=== PATIENT | female | born 1965 | race Caucasian/White ===

== ENCOUNTER 2016-11-26 11:00 | Outpatient (CLI) | payer OTHER ==
--- NOTE | 2016-11-28 16:35 | PE ---
EXAMINATION TYPE: PET CT fusion skull to thigh DATE OF EXAM: 11/26/2016 1:21 PM CLINICAL HISTORY: 51-year-old female solitary pulmonary nodule, initial staging TECHNIQUE: Following the intravenous administration of 11.92 mCi of F-18 FDG, whole body images are performed from the skull base to the midthigh. Images are reviewed on the computer in the coronal, axial, and sagittal planes. Reconstructed rotating images are created on independent workstation and reviewed on the computer. A localization and attenuation correction CT is performed in conjunction with the PET scan. Glucose level: 97 mg/dL COMPARISON: CT chest 02/04/2016 FINDINGS: PET: Redemonstrated goitrous enlargement of the left lobe of the thyroid gland which could be further eval uated with thyroid ultrasound. No discrete FDG uptake here. There is physiologic FDG uptake within th e neck. Redemonstrated 1 cm subpleural pulmonary nodule in the lateral segment right middle lobe, unchanged f rom 02/04/2016. There is no appreciable FDG uptake in this region. Also redemonstrated is the elongated lobulated nodule at the right hilar region measuring up to 1.4 c m long, again without appreciable FDG uptake in this region. Otherwise, physiologic FDG uptake within the chest, abdomen, and pelvis. ATTENUATION CORRECTION CT: Visualized paranasal sinuses and mastoid air cells are clear. No cervical lymphadenopathy seen. Heart is upper limits of normal in size without pericardial effusion. Ascending aorta is ectatic at 3 .9 cm. There is conventional arch vessel branching anatomy. No thoracic lymphadenopathy identified. Bullous change in the right infrahilar region. Mild diffuse bronchial wall thickening suggests bronc hitis or chronic asthma. No consolidation or pleural effusion. Small hiatal hernia. No dilated small bowel, free fluid, or free air. Cholecystectomy clips are pres ent. No mesenteric or retroperitoneal lymphadenopathy. Mild to moderate stool burden without pericolo madeline inflammatory change. Bladder is nondistended. Uterus appears surgically absent. Neither ovary well seen. No abnormal fluid collection in the pelvis. Bones: Degenerative changes at the hips. A sclerotic focus within the left sacrum shows no discrete FDG uptake suggesting a benign etiology. Some facet arthropathy in the lower lumbar spine. Endplate s pondylosis mid to lower thoracic spine. No osseous destructive process. IMPRESSION: 1. The 1 cm right middle lobe pulmonary nodule in question shows no discrete hypermetabolism and is s table from 02/04/2016. This favors a benign etiology. Additional one-year CT follow-up can ensure 2 ye ars of stability. 2. The 1.4 cm right hilar pulmonary nodule also shows no discrete hypermetabolism and is also unchang ed. This can also be reassessed at the one-year CT follow-up. 3. Goitrous enlargement of the left lobe of the thyroid gland.
== END 2016-11-26 13:00 | disposition home or self-care (01) ==
LOC: RADPETMAIN 11:00
PROVIDERS: ATTEND Nurse Practitioner
DX: R91.1 Solitary pulmonary nodule (principal)
CPT/HCPCS: 78815; A9552

== ENCOUNTER 2017-03-27 18:55 | Emergency (ER) | payer OTHER ==
[2017-03-27 19:04] VITALS: TEMP 98
--- NOTE | 2017-03-27 19:37 | ED ---
General Adult HPI - General Chief complaint: Neuro Symptoms/Deficit Stated complaint: LEFT SIDE WEAKNESS/NUMBNESS, DIZZINESS Time Seen by Provider: 03/27/17 19:10 Source: patient, family Mode of arrival: wheelchair Limitations: no limitations - History of Present Illness Initial comments: This 51-year-old female presents with the complaint of some left sided numbness. She states that this is present to her bilateral face, left leg, and left arm. Symptom onset was this morning. She states that she feels shaky and has some generalized weakness. She denies any headache or head injury. She apparently had one previous similar incident years ago. He states that she was told that she might have had a TIA at that time. she denies any chest pain or shortness of breath. She further denies any fevers or recent infections. She denies any unilateral weakness. she also complains of some left calf pain and cramping sensation. She denies any history of DVT or PE. No other complaints or modifying factors. - Related Data Home Medications Medication Instructions Recorded Confirmed Lisinopril-Hctz 20-25 mg 1 tab PO DAILY 11/13/15 03/27/17 [Zestoretic 20-25] Previous Rx's Medication Instructions Recorded Nitroglycerin Sl Tabs [Nitrostat] 0.4 mg SUBLINGUAL Q5M PRN #50 tab 02/05/16 Allergies Allergy/AdvReac Type Severity Reaction Status Date / Time No Known Allergies Allergy Verified 03/27/17 20:49 Review of Systems ROS Statement: Those systems with pertinent positive or pertinent negative responses have been documented in the HPI. ROS Other: All systems not noted in ROS Statement are negative. Past Medical History Past Medical History: Hypertension, Thyroid Disorder Additional Past Medical History / Comment(s): Hyperthyroid History of Any Multi-Drug Resistant Organisms: None Reported Past Surgical History: Section, Cholecystectomy, Hysterectomy Additional Past Surgical History / Comment(s): colonoscopy-normal Past Anesthesia/Blood Transfusion Reactions: No Reported Reaction Past Psychological History: No Psychological Hx Reported Additional Psychological History / Comment(s): Pt resides with her adult neal. She is independent. She drives. Smoking Status: Current every day smoker Past Alcohol Use History: Rare Additional Past Alcohol Use History / Comment(s): Pt states she started smoking at age 16 yrs and is a 1ppd smoker. Past Drug Use History: None Reported - Past Family History Father Family Medical History: Myocardial Infarction ([place]) Additional Family Medical History / Comment(s): Father had a massive [place] at age 59 yrs Mother Family Medical History: Coronary Artery Disease (CAD), Myocardial Infarction ([place] ) Additional Family Medical History / Comment(s): Pt believes mother had a [place]. She has had a cardiac stent. She is 71 yrs old. General Exam - General Exam Comments Initial Comments: GENERAL: The patient is well nourished and well hydrated. VITAL SIGNS: Heart rate, blood pressure, respiratory rate reviewed as recorded in nurse's notes. EYES: Pupils are round and reactive. Extraocular movements are intact. No conjunctival / lid redness or swelling. ENT: No external evidence of injury, swelling, or ecchymosis. Airway is patent. Throat is clear. NECK: Nontender. No swelling or evidence of injury. No subcutaneous emphysema. Trachea is midline. No thyroid mass. HEART: Regular rate and rhythm. Good peripheral pulses. LUNGS/CHEST: Breath sounds clear and equal bilaterally. No rales, rhonchi, or wheezes. No ecchymosis, subcutaneous emphysema, or tenderness. ABDOMEN: Abdomen soft without tenderness. No palpable masses or organomegaly. No peritoneal signs. No abdominal wall swelling or ecchymosis. EXTREMITIES: there is mild tenderness present to the left calf without any swelling.Normal muscle tone and function. No thoracolumbar tenderness. NEUROLOGIC: Sensation is grossly intact. Cranial nerve exam reveals face is symmetrical, tongue is midline, speech is clear. there is no weakness to extremities. SKIN: No abrasions or ecchymosis is noted. No induration or masses noted. PSYCHIATRIC: Alert and oriented. Appropriate behavior and judgment. Limitations: no limitations Course Vital Signs 03/27/17 03/27/17 03/27/17 19:01 19:30 20:30 Temperature 98 F Pulse Rate 99 94 94 Respiratory 16 18 18 Rate Blood Pressure 159/95 150/82 139/76 O2 Sat by Pulse 99 96 96 Oximetry Medical Decision Making - Medical Decision Making the patient was seen and examined. All diagnostics were reviewed. EKG shows a normal sinus rhythm at a rate of 97. No acute ST-T wave changes are identified. There is minimal voltage criteria for left ventricular hypertrophy. The NE interval is 158, QRS duration is 86, and the QTc interval is 449.The computed tomography scan of the brain did not show any acute processes. the lower extremity venous Doppler of the left leg does not show any evidence of DVT. The laboratory is all essentially within normal limits except for the TSH was fairly low. She does relate that she's previously been diagnosed with hyperthyroidism. She was seen and spa supervisor but had been doing fairly well in stopped her medications approximately 3 months ago under the direction of her spa supervisor. She apparently was on Tapazole at that time. She denies any previous paresthesias with hyperthyroidism. It is felt as though she is stable for discharge but should have some close follow-up with her spa supervisor to see if she should be back on this medication. It is felt as though the paresthesias potentially could be related to the thyroid. Otherwise, the exact cause is not definitively determined. Return parameters are discussed and she lives in no distress. She is feeling improved on recheck. - Lab Data Result diagrams: 03/27/17 19:45 03/27/17 19:45 Lab Results 03/27/17 03/27/17 03/27/17 Range/Units 19:45 19:45 19:45 WBC 6.6 (3.8-10.6) k/uL RBC 4.46 (3.80-5.40) m/uL Hgb 13.0 (11.4-16.0) gm/dL Hct 38.7 (34.0-46.0) % MCV 86.8 (80.0-100.0) fL MCH 29.1 (25.0-35.0) pg MCHC 33.5 (31.0-37.0) g/dL RDW 13.1 (11.5-15.5) % Plt Count 219 (150-450) k/uL Neutrophils % 61 % Lymphocytes % 30 % Monocytes % 4 % Eosinophils % 3 % Basophils % 0 % Neutrophils # 4.0 (1.3-7.7) k/uL Lymphocytes # 2.0 (1.0-4.8) k/uL Monocytes # 0.3 (0-1.0) k/uL Eosinophils # 0.2 (0-0.7) k/uL Basophils # 0.0 (0-0.2) k/uL PT 10.1 (9.0-12.0) sec INR 1.0 (<1.1) APTT 22.9 (22.0-30.0) sec Sodium 141 (137-145) mmol/L Potassium 3.8 (3.5-5.1) mmol/L Chloride 107 (98-107) mmol/L Carbon Dioxide 27 (22-30) mmol/L Anion Gap 7 mmol/L BUN 17 (7-17) mg/dL Creatinine 0.93 (0.52-1.04) mg/dL Est GFR (MDRD) Af Amer >60 (>60 ml/min/1.73 sqM) Est GFR (MDRD) Non-Af >60 (>60 ml/min/1.73 sqM) Glucose 111 H (74-99) mg/dL Calcium 9.5 (8.4-10.2) mg/dL Phosphorus 2.8 (2.5-4.5) mg/dL Magnesium 1.9 (1.6-2.3) mg/dL Total Bilirubin 0.5 (0.2-1.3) mg/dL AST 18 (14-36) U/L ALT 38 (9-52) U/L Alkaline Phosphatase 76 (38-126) U/L Total Protein 6.5 (6.3-8.2) g/dL Albumin 4.0 (3.5-5.0) g/dL TSH <0.015 L (0.465-4.680) mIU/L Free T4 2.41 H (0.78-2.19) ng/dL Disposition Clinical Impression: Paresthesia, Hyperthyroidism Disposition: HOME SELF-CARE Condition: Good Instructions: Paresthesia (ED), Hyperthyroidism (ED) Additional Instructions: please follow-up with your spa supervisor as soon as possible. Referrals: Ronald Mejia MD [Primary Care Provider] - 1-2 days Time of Disposition: 21:39
[2017-03-27] MEDS ORDERED: KETOROLAC 30 MG/ML 1 ML VIAL IVP STA (19:44)
[2017-03-27 20:11] LABS: Basophils % (A) 0 %; CH 28.8; CHCM 33.3; Eosinophils # (A) 0.2 k/uL (0-0.7); Eosinophils % (A) 3 %; HCT 38.7 % (34.0-46.0); HDW 2.65; Luc # (Auto) 0.12; Luc % (Auto) 2; Lymphocytes % (A) 30 %; MCH 29.1 pg (25.0-35.0); MCHC 33.5 g/dL (31.0-37.0); MCV 86.8 fL (80.0-100.0); Mean Platelet Volume 8.1; Monocytes # (A) 0.3 k/uL (0-1.0); Monocytes % (A) 4 %; Neutrophils % (A) 61 %; RBC 4.46 m/uL (3.80-5.40); RDW 13.1 % (11.5-15.5); WBC 6.6 k/uL (3.8-10.6); WBC (Perox) 6.94
--- NOTE | 2017-03-27 20:14 | CT ---
EXAMINATION TYPE: CT brain wo con DATE OF EXAM: 03/27/2017 COMPARISON: 07/13/2015 HISTORY: facial and extremity numbness CT DLP: 1054.2 mGycm Automated exposure control for dose reduction was used. FINDINGS: Ventricles and sulci appear normal. There is no mass effect nor midline shift. There is no sign of in tracranial hemorrhage. The calvarium is intact. IMPRESSION: Negative unenhanced head CT scan. No change.
[2017-03-27 20:24] LABS: Partial Thromboplastin Time 22.9 sec (22.0-30.0); Prothrombin Time 10.1 sec (9.0-12.0)
[2017-03-27 20:30] LABS: ALT 38 U/L (9-52); AST 18 U/L (14-36); Alkaline Phosphatase 76 U/L (38-126); Anion Gap 7 mmol/L; Blood Urea Nitrogen 17 mg/dL (7-17); Calcium 9.5 mg/dL (8.4-10.2); Carbon Dioxide 27 mmol/L (22-30); Chloride 107 mmol/L (98-107); Glucose 111 mg/dL (74-99); Magnesium 1.9 mg/dL (1.6-2.3); Non-African American GFR(MDRD) >60 (>60 ml/min/1.73 sqM); Phosphorous 2.8 mg/dL (2.5-4.5); Potassium 3.8 mmol/L (3.5-5.1); Sodium 141 mmol/L (137-145); Total Bilirubin 0.5 mg/dL (0.2-1.3); Total Protein 6.5 g/dL (6.3-8.2)
--- NOTE | 2017-03-27 21:01 | US ---
EXAMINATION TYPE: US venous doppler duplex LE LT DATE OF EXAM: 03/27/2017 8:43 PM COMPARISON: Prior in PACS CLINICAL HISTORY: Pain left leg. SIDE PERFORMED: Left TECHNIQUE: The lower extremity deep venous system is examined utilizing real time linear array sonog leonard with graded compression, doppler sonography and color-flow sonography. VESSELS IMAGED: External Iliac Vein (EIV) Common Femoral Vein Deep Femoral Vein Greater Saphenous Vein * Femoral Vein Popliteal Vein Small Saphenous Vein * Proximal Calf Veins (* superficial vessels) Left Leg: Negative for DVT IMPRESSION: Normal exam. No evidence of deep venous thrombosis in the left leg.
[2017-03-27 21:03] VITALS: RESP 18
[2017-03-27 21:49] VITALS: BP 139/87; PULSE 76
== END 2017-03-27 21:49 | disposition home or self-care (01) ==
LOC: EC 18:55
DX: E05.90 Thyrotoxicosis, unspecified without thyrotoxic crisis or storm (principal); R20.0 Anesthesia of skin; I51.7 Cardiomegaly; R53.1 Weakness; I10 Essential (primary) hypertension; F17.200 Nicotine dependence, unspecified, uncomplicated; Z79.899 Other long term (current) drug therapy
CPT/HCPCS: 36415; 70450; 80053; 83735; 84100; 84439; 84443; 85025; 85610; 85730; 93005; 99284

== ENCOUNTER → 2017-07-11 | Outpatient (CLI) | payer OTHER ==
--- NOTE | 2017-07-11 15:18 | WWHP ---
[facility] - HISTORY AND PHYSICAL DATE OF SERVICE: 07/11/2017 CHIEF COMPLAINT: The patient is here for her routine gynecologic exam and mammogram. HPI: This is a 51-year-old, G3, P3 with an LMP of 2000, who is status post SORAIDA for benign reasons. The patient is without gynecologic complaints. She has had occasional hot flashes, but they are infrequent. PAST MEDICAL HISTORY: Chronic hypertension and hyperthyroidism. MEDICATIONS: 1. Zestoretic 25 mg daily. 2. Tapazole 10 mg daily. 3. Aspirin 325 mg daily. ALLERGIES: No known drug allergies. 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 SOCIAL HISTORY: She smokes a half a pack of cigarettes per day and this is down from last year. She has about 3 alcoholic drinks per month and denies drug use. She has been with her boyfriend since 2014 and lives with him. 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 REVIEW OF SYSTEMS: She has gained about 26 pounds over the last year. She denies respiratory, cardiac, or GI problems. PHYSICAL EXAM: Blood pressure 141/90, height 5 feet 6 inches, weight 245 pounds, temperature 97.9, pulse 70. This is a well-developed, heavyset white female, who is alert and oriented x3, in no acute distress. HEENT is within normal limits. NECK: Supple and there is generalized thyromegaly. The thyroid gland is approximately 2 times normal size and is nontender. There are no focal thyroid nodules. CHEST AND. LUNGS: Clear to auscultation. HEART: Regular rate and rhythm. Breasts are without mass or discharge. Axillary exam is negative for adenopathy. Back negative for CVA tenderness. ABDOMEN: Mildly obese, soft, nontender, without palpable masses. PELVIC EXAM: Normal external genitalia. Vagina appears normal without significant atrophy. There is no evidence of prolapse. Bimanual exam is negative for mass or tenderness. Rectovaginal exam is negative for mass or tenderness and is negative for occult blood. EXTREMITIES: Nontender. IMPRESSION: 1. A 51-year-old female status post total abdominal hysterectomy with normal gynecologic exam. 2. Mildly elevated blood pressure. PLAN: 1. Pap smears have been discontinued. 2. Self breast examination was discussed. 3. Mammogram will be done today. 4. I have recommended screening colonoscopy and Dr. Menard's card was given to the patient for this. 5. I recommended that she quit smoking. She states she is in the process of quitting. 6. Osteoporosis prevention was discussed. 7. She states she is planning on having radioactive iodine treatment for her hyperthyroidism at the [facility]. She will follow up with her luster applicator for that. 8. She will return in 1 year. MMCHEIKHL / SAHILN: [id number] /
--- NOTE | 2017-07-12 08:41 | MM ---
Reason for exam: screening (asymptomatic). Last mammogram was performed 1 year and 1 month ago. History: Patient is postmenopausal. Benign US LT VAD breast biopsy of the left breast, October 11, 2013. Benign excisional biopsy of the left breast, 1997. Physical Findings: A clinical breast exam by your physician is recommended on an annual basis and results should be correlated with mammographic findings. MG Screening Mammo w CAD Bilateral CC and MLO view(s) were taken. Prior study comparison: June 15, 2016, bilateral MG screening mammo w CAD. June 11, 2015, bilateral MG screening mammo w CAD. There are scattered fibroglandular densities. Finding: There are typically benign round calcifications in both breasts. Previous mammotome biopsy in the left breast. Asymmetric breast tissue in the left breast upper outer quadrant. There is no discrete abnormality. ASSESSMENT: Benign, BI-RAD 2 RECOMMENDATION: Routine screening mammogram of both breasts in 1 year.
== END | disposition home or self-care (01) ==
LOC: WWCWWP 13:12
PROVIDERS: ATTEND Obstetrics & Gynecology
DX: Z12.31 Encounter for screening mammogram for malignant neoplasm of breast (principal)

== ENCOUNTER 2019-05-15 22:47 | Emergency (ER) | payer OTHER ==
[2019-05-15 22:56] VITALS: TEMP 97.7
--- NOTE | 2019-05-15 23:07 | ED ---
Abdominal Pain HPI - General Chief Complaint: Abdominal Pain Stated Complaint: Lt side pain Time Seen by Provider: 05/15/19 23:06 Source: patient Mode of arrival: ambulatory - History of Present Illness Initial Comments: Patient is a 53-year-old female who presents to the emergency department today for evaluation of 3 days of left lower quadrant abdominal pain. She reports that she's been experiencing left-sided lower abdominal pain for approximately 3 days, pain is described as dull aching, constant, worse with walking. Patient denies any nausea, vomiting, change in appetite, diarrhea, constipation or change in bowel or bladder habits. She denies any dysuria or hematuria though she noted when she provided urine sample her urine appeared very dark. Patient denies any fevers or chills. She reports her last colonoscopy was about 3 months ago and she was told it was normal. She has no history of inflammatory or irritable bowel, no history of diverticulitis or known history of diverticulosis. - Related Data Home Medications Medication Instructions Recorded Confirmed Lisinopril-Hctz 20-25 mg 1 tab PO HS 11/13/15 05/15/19 [Zestoretic 20-25] Methimazole [Tapazole] 20 mg PO HS 05/15/19 05/15/19 Previous Rx's Medication Instructions Recorded Nitroglycerin Sl Tabs [Nitrostat] 0.4 mg SUBLINGUAL Q5M PRN #50 tab 02/05/16 Allergies Allergy/AdvReac Type Severity Reaction Status Date / Time No Known Allergies Allergy Verified 05/15/19 23:08 Review of Systems ROS Statement: Those systems with pertinent positive or pertinent negative responses have been documented in the HPI. ROS Other: All systems not noted in ROS Statement are negative. Past Medical History Past Medical History: Hypertension, Thyroid Disorder Additional Past Medical History / Comment(s): Hyperthyroid History of Any Multi-Drug Resistant Organisms: None Reported Past Surgical History: Section, Cholecystectomy, Hysterectomy Additional Past Surgical History / Comment(s): colonoscopy-normal Past Anesthesia/Blood Transfusion Reactions: No Reported Reaction Past Psychological History: No Psychological Hx Reported Smoking Status: Current every day smoker Past Alcohol Use History: Rare Past Drug Use History: None Reported - Past Family History Father Family Medical History: Myocardial Infarction ([place]) Additional Family Medical History / Comment(s): Father had a massive [place] at age 59 yrs Mother Family Medical History: Coronary Artery Disease (CAD), Myocardial Infarction ([place]) Additional Family Medical History / Comment(s): Pt believes mother had a [place]. She has had a cardiac stent. She is 71 yrs old. General Exam - General Exam Comments Initial Comments: Physical Exam GENERAL: Patient is well-developed and well-nourished. Patient is nontoxic and well-hydrated and is in no distress. HENT: Normocephalic, Atraumatic. EYES: PERRL, EOMI PULMONARY: Unlabored respirations. No audible rales rhonchi or wheezing was noted. CARDIOVASCULAR: There is a regular rate and rhythm without any murmurs gallops or rubs. ABDOMEN: Soft and nontender with normal bowel sounds. Mild tenderness to deep palpation in the left lower quadrant No palpable hernias though exam is limited by morbid obesity SKIN: Patient noted to have a rash under her pannus in the suprapubic area consistent with candidiasis she reports this is chronic she's been treated for it : Deferred NEUROLOGIC: Patient is alert and oriented x3. Moving all extremities spontaneously MUSCULOSKELETAL: Normal extremities with adequate strength and full range of motion. No lower extremity swelling or edema. No calf tenderness. PSYCHIATRIC: Normal psychiatric evaluation Course Vital Signs 05/15/19 22:53 Temperature 97.7 F Pulse Rate 106 H Respiratory 17 Rate Blood Pressure 164/103 O2 Sat by Pulse 96 Oximetry Medical Decision Making - Medical Decision Making The patient was seen and evaluated, history is obtained from the patient and review of medical record History and physical exam are concerning for left sided abdominal pain There is concern for possible underlying abdominal wall hernia given of the exam is somewhat limited by the patient's body habitus Labs and CT were ordered Labs are unremarkable Urinalysis with gross contamination Computed tomography scan reveals epiploic appendage ideas with no signs of acute intra-abdominal pathology Results were discussed with the patient who is resting comfortably she's received IV fluid she is comfortable with plan for discharge home, supportive care, pain management with Tylenol and Motrin. All questions pertaining to care were answered return parameters were discussed patient was discharged home in stable condition. - Lab Data Result diagrams: 05/16/19 00:20 05/16/19 00:20 Lab Results 05/16/19 05/16/19 05/16/19 Range/Units 00:20 00:20 00:20 WBC 7.5 (3.8-10.6) k/uL RBC 4.82 (3.80-5.40) m/uL Hgb 14.1 (11.4-16.0) gm/dL Hct 42.5 (34.0-46.0) % MCV 88.1 (80.0-100.0) fL MCH 29.3 (25.0-35.0) pg MCHC 33.2 (31.0-37.0) g/dL RDW 14.8 (11.5-15.5) % Plt Count 197 (150-450) k/uL Neutrophils % 57 % Lymphocytes % 32 % Monocytes % 6 % Eosinophils % 3 % Basophils % 1 % Neutrophils # 4.3 (1.3-7.7) k/uL Lymphocytes # 2.4 (1.0-4.8) k/uL Monocytes # 0.5 (0-1.0) k/uL Eosinophils # 0.2 (0-0.7) k/uL Basophils # 0.1 (0-0.2) k/uL Sodium 140 (137-145) mmol/L Potassium 4.2 (3.5-5.1) mmol/L Chloride 107 (98-107) mmol/L Carbon Dioxide 22 (22-30) mmol/L Anion Gap 11 mmol/L BUN 19 H (7-17) mg/dL Creatinine 0.84 (0.52-1.04) mg/dL Est GFR (CKD-EPI)AfAm >90 (>60 ml/min/1.73 sqM) Est GFR (CKD-EPI)NonAf 80 (>60 ml/min/1.73 sqM) Glucose 115 H (74-99) mg/dL Plasma Lactic Acid Jose (0.7-2.0) mmol/L Calcium 10.1 (8.4-10.2) mg/dL Total Bilirubin 0.4 (0.2-1.3) mg/dL AST 14 (14-36) U/L ALT 22 (9-52) U/L Alkaline Phosphatase 94 (38-126) U/L Total Protein 6.8 (6.3-8.2) g/dL Albumin 4.2 (3.5-5.0) g/dL Amylase 42 (30-110) U/L Lipase 54 (23-300) U/L Urine Color Urine Appearance (Clear) Urine pH (5.0-8.0) Ur Specific [place] (1.001-1.035) Urine Protein (Negative) Urine Glucose (UA) (Negative) Urine Ketones (Negative) Urine Blood (Negative) Urine Nitrite (Negative) Urine Bilirubin (Negative) Urine Urobilinogen (<2.0) mg/dL Ur Leukocyte Esterase (Negative) Urine RBC (0-5) /hpf Urine WBC (0-5) /hpf Ur Squamous Epith Cells (0-4) /hpf Urine Bacteria (None) /hpf Urine Mucus (None) /hpf Urine HCG, Qual Not Detected (Not Detectd) 05/16/19 05/16/19 Range/Units 00:20 00:20 WBC (3.8-10.6) k/uL RBC (3.80-5.40) m/uL Hgb (11.4-16.0) gm/dL Hct (34.0-46.0) % MCV (80.0-100.0) fL MCH (25.0-35.0) pg MCHC (31.0-37.0) g/dL RDW (11.5-15.5) % Plt Count (150-450) k/uL Neutrophils % % Lymphocytes % % Monocytes % % Eosinophils % % Basophils % % Neutrophils # (1.3-7.7) k/uL Lymphocytes # (1.0-4.8) k/uL Monocytes # (0-1.0) k/uL Eosinophils # (0-0.7) k/uL Basophils # (0-0.2) k/uL Sodium (137-145) mmol/L Potassium (3.5-5.1) mmol/L Chloride (98-107) mmol/L Carbon Dioxide (22-30) mmol/L Anion Gap mmol/L BUN (7-17) mg/dL Creatinine (0.52-1.04) mg/dL Est GFR (CKD-EPI)AfAm (>60 ml/min/1.73 sqM) Est GFR (CKD-EPI)NonAf (>60 ml/min/1.73 sqM) Glucose (74-99) mg/dL Plasma Lactic Acid Jose 0.6 L (0.7-2.0) mmol/L Calcium (8.4-10.2) mg/dL Total Bilirubin (0.2-1.3) mg/dL AST (14-36) U/L ALT (9-52) U/L Alkaline Phosphatase (38-126) U/L Total Protein (6.3-8.2) g/dL Albumin (3.5-5.0) g/dL Amylase (30-110) U/L Lipase (23-300) U/L Urine Color Yellow Urine Appearance Cloudy H (Clear) Urine pH 5.5 (5.0-8.0) Ur Specific [place] 1.027 (1.001-1.035) Urine Protein Negative (Negative) Urine Glucose (UA) Negative (Negative) Urine Ketones Negative (Negative) Urine Blood Moderate H (Negative) Urine Nitrite Positive H (Negative) Urine Bilirubin Negative (Negative) Urine Urobilinogen <2.0 (<2.0) mg/dL Ur Leukocyte Esterase Negative (Negative) Urine RBC 5 (0-5) /hpf Urine WBC 2 (0-5) /hpf Ur Squamous Epith Cells 2 (0-4) /hpf Urine Bacteria Many H (None) /hpf Urine Mucus Few H (None) /hpf Urine HCG, Qual (Not Detectd) Disposition Clinical Impression: Abdominal pain Disposition: HOME SELF-CARE Condition: Stable Instructions (If sedation given, give patient instructions): Abdominal Pain (ED) Is patient prescribed a controlled substance at d/c from ED?: No Referrals: Ronald Mejia MD [Primary Care Provider] - 1-2 days
[2019-05-16] MEDS ORDERED: SODIUM CHLORIDE 0.9% 1,000 ML IV STA (00:02)
[2019-05-16 00:42] LABS: Appearance,Urine Cloudy (Clear); Bacteria,Urine Many /hpf; Basophils # (A) 0.1 k/uL (0-0.2); Basophils % (A) 1 %; Bilirubin,Urine Negative (Negative); Blood,Urine Moderate (Negative); Color,Urine Yellow; Eosinophils # (A) 0.2 k/uL (0-0.7); Eosinophils % (A) 3 %; Glucose,Urine (UA) Negative (Negative); HCT 42.5 % (34.0-46.0); HGB 14.1 gm/dL (11.4-16.0); Ketones,Urine Negative (Negative); Leukocyte Esterase,Urine Negative (Negative); Lymphocytes # (A) 2.4 k/uL (1.0-4.8); Lymphocytes % (A) 32 %; MCH 29.3 pg (25.0-35.0); MCHC 33.2 g/dL (31.0-37.0); MCV 88.1 fL (80.0-100.0); Mean Platelet Volume 8.5; Monocytes # (A) 0.5 k/uL (0-1.0); Monocytes % (A) 6 %; Mucus,Urine Few /hpf; Neutrophils # (A) 4.3 k/uL (1.3-7.7); Neutrophils % (A) 57 %; Nitrite,Urine Positive (Negative); PH, Urine 5.5 (5.0-8.0); Platelet Count 197 k/uL (150-450); Protein,Urine Negative (Negative); RBC 4.82 m/uL (3.80-5.40); RBC,Urine 5 /hpf (0-5); RDW 14.8 % (11.5-15.5); Specific Gravity,Urine 1.027 (1.001-1.035); Squamous Epithelial Cell,Urine 2 /hpf (0-4); Urobilinogen,Urine <2.0 mg/dL (<2.0); WBC 7.5 k/uL (3.8-10.6); WBC,Urine 2 /hpf (0-5)
[2019-05-16 00:51] LABS: ALT 22 U/L (9-52); AST 14 U/L (14-36); African American GFR (CKD) >90 (>60 ml/min/1.73 sqM); Albumin 4.2 g/dL (3.5-5.0); Alkaline Phosphatase 94 U/L (38-126); Amylase 42 U/L (30-110); Anion Gap 11 mmol/L; Blood Urea Nitrogen 19 mg/dL (7-17); Calcium 10.1 mg/dL (8.4-10.2); Carbon Dioxide 22 mmol/L (22-30); Chloride 107 mmol/L (98-107); Glucose 115 mg/dL (74-99); Potassium 4.2 mmol/L (3.5-5.1); Sodium 140 mmol/L (137-145); Total Bilirubin 0.4 mg/dL (0.2-1.3); Total Protein 6.8 g/dL (6.3-8.2)
--- NOTE | 2019-05-16 02:16 | CT ---
EXAM: CT Abdomen and Pelvis With Intravenous Contrast CLINICAL HISTORY: Pain TECHNIQUE: Axial computed tomography images of the abdomen and pelvis with intravenous contrast. CTDI is 0.242, 0.242, 21.6, 17.6 mGy and DLP is 1945.7 mGy-cm. This CT exam was performed using one or more of the following dose reduction techniques: automated exposure control, adjustment of the mA and/or kV according to patient size, and/or use of iterative reconstruction technique. COMPARISON: No relevant prior studies available. FINDINGS: Lung bases: Calcified pulmonary nodule within the right middle lobe. Bullae the medial right middle lobe measuring up to 5.6 cm. ABDOMEN: Liver: Unremarkable. Gallbladder and bile ducts: Gallbladder is surgically absent. Pancreas: Unremarkable. Spleen: Calcified granulomata within the spleen. Adrenals: Unremarkable. Kidneys and ureters: Unremarkable. Stomach and bowel: Unremarkable. PELVIS: Appendix: No findings to suggest acute appendicitis. Bladder: Unremarkable. Reproductive: Uterus is surgically absent. ABDOMEN and PELVIS: Intraperitoneal space: Acute epiploic appendagitis seen along the lower descending colon. Bones/joints: No acute fracture. No dislocation. Soft tissues: Unremarkable. Vasculature: Unremarkable. No abdominal aortic aneurysm. Lymph nodes: Unremarkable. IMPRESSION: Acute epiploic appendagitis seen along the lower descending colon.
[2019-05-16 03:15] VITALS: BP 143/65; PULSE 84; RESP 16
== END 2019-05-16 03:14 | disposition home or self-care (01) ==
LOC: EC 22:47
DX: R10.32 Left lower quadrant pain (principal); K63.89 Other specified diseases of intestine; I10 Essential (primary) hypertension; F17.200 Nicotine dependence, unspecified, uncomplicated; Z79.899 Other long term (current) drug therapy
CPT/HCPCS: 99284; 96360; 36415; 80053; 82150; 83605; 83690; 85025; 81001; 81025; 74177; Q9967

== ENCOUNTER 2021-04-27 15:57 | Observation (INO) | payer OTHER ==
[2021-04-27 16:41] LABS: Basophils % (A) 0 %; Eosinophils # (A) 0.3 k/uL (0-0.7); Eosinophils % (A) 4 %; HCT 40.9 % (34.0-46.0); HGB 13.8 gm/dL (11.4-16.0); Lymphocytes # (A) 2.2 k/uL (1.0-4.8); Lymphocytes % (A) 32 %; MCH 29.1 pg (25.0-35.0); MCHC 33.8 g/dL (31.0-37.0); MCV 86.2 fL (80.0-100.0); Mean Platelet Volume 8.3; Monocytes # (A) 0.3 k/uL (0-1.0); Monocytes % (A) 4 %; Neutrophils # (A) 4.1 k/uL (1.3-7.7); Neutrophils % (A) 59 %; Platelet Count 188 k/uL (150-450); RBC 4.74 m/uL (3.80-5.40); RDW 13.6 % (11.5-15.5); WBC 6.9 k/uL (3.8-10.6)
[2021-04-27 16:52] LABS: Albumin 4.2 g/dL (3.5-5.0); Calcium 9.5 mg/dL (8.4-10.2); Potassium 4.3 mmol/L (3.5-5.1); Total Bilirubin 0.3 mg/dL (0.2-1.3); Total Protein 6.6 g/dL (6.3-8.2)
--- NOTE | 2021-04-27 16:58 | ED ---
General Adult HPI - General Chief complaint: Chest Pain Stated complaint: Back Pain/Lt Leg Swelling Time Seen by Provider: 04/27/21 16:06 Source: patient, RN notes reviewed, old records reviewed Mode of arrival: ambulatory Limitations: no limitations - History of Present Illness Initial comments: 55-year-old female with chief complaint of back pain and bilateral leg swelling. Patient states she's had several days of central back pain radiating into her chest. She does have a history of hypertension and is a current smoker. She states these episodes of been intermittent lasting approximately 30 seconds each. She's also noted swelling to both feet. No vomiting. No diaphoresis. No abdominal pain. - Related Data Home Medications Medication Instructions Recorded Confirmed Lisinopril [Zestril] 10 mg PO DAILY 04/27/21 04/27/21 Methimazole [Tapazole] 7 mg PO DAILY 04/27/21 04/27/21 Allergies Allergy/AdvReac Type Severity Reaction Status Date / Time No Known Allergies Allergy Verified 04/27/21 17:52 Review of Systems ROS Statement: Those systems with pertinent positive or pertinent negative responses have been documented in the HPI. ROS Other: All systems not noted in ROS Statement are negative. Past Medical History Past Medical History: Hypertension, Thyroid Disorder Additional Past Medical History / Comment(s): Hyperthyroid History of Any Multi-Drug Resistant Organisms: None Reported Past Surgical History: Section, Cholecystectomy, Hysterectomy Additional Past Surgical History / Comment(s): colonoscopy-normal Past Anesthesia/Blood Transfusion Reactions: No Reported Reaction Past Psychological History: No Psychological Hx Reported Smoking Status: Current every day smoker Past Alcohol Use History: Rare Past Drug Use History: Marijuana - Past Family History Father Family Medical History: Myocardial Infarction (NV) Additional Family Medical History / Comment(s): Father had a massive NV at age 59 yrs Mother Family Medical History: Coronary Artery Disease (CAD), Myocardial Infarction (NV) Additional Family Medical History / Comment(s): Pt believes mother had a NV. She has had a cardiac stent. She is 71 yrs old. General Exam Limitations: no limitations General appearance: alert, in no apparent distress Head exam: Present: atraumatic, normocephalic Eye exam: Present: normal appearance, PERRL ENT exam: Present: normal exam Neck exam: Present: normal inspection. Absent: tenderness, meningismus Respiratory exam: Present: normal lung sounds bilaterally. Absent: respiratory distress, wheezes Cardiovascular Exam: Present: regular rate, normal rhythm GI/Abdominal exam: Present: soft. Absent: distended, tenderness, guarding Extremities exam: Present: normal capillary refill, pedal edema Neurological exam: Present: alert, oriented X3, CN II-XII intact. Absent: motor sensory deficit Psychiatric exam: Present: normal affect, normal mood Skin exam: Present: warm, dry Course Vital Signs 04/27/21 04/27/21 16:01 18:30 Temperature 98.1 F Pulse Rate 99 89 Respiratory 20 17 Rate Blood Pressure 194/91 153/101 O2 Sat by Pulse 98 96 Oximetry EKG Findings - EKG Comments: EKG Findings:: EKG: Sinus rhythm with PVC, left axis, LVH, rate of 99, AK interval 158, QRS duration 88, QTC 441, no ST segment elevation. Medical Decision Making - Medical Decision Making 55-year-old female with chest pain and back pain, as well as bilateral lower e xtremity swelling. Workup in the emergency Department is initiated, including EKG which is sinus rhythm without ST segment elevation. She has a chest x-ray which is negative for acute cardiopulmonary disease. I did perform CT angiography to rule out dissection this was negative for aortic pathology. She has a negative troponin, negative BMP. There is some concern that this may be an atypical presentation of chest pain equivalent. She will be placed in observation for serial cardiac enzymes, telemetry, cardiology consultation. Echo has been ordered. Case discussed with Dr. Armstrong who will admit. - Lab Data Result diagrams: 04/27/21 16:25 04/27/21 16:25 Lab Results 04/27/21 04/27/21 04/27/21 Range/Units 16:25 16:25 16:25 WBC 6.9 (3.8-10.6) k/uL RBC 4.74 (3.80-5.40) m/uL Hgb 13.8 (11.4-16.0) gm/dL Hct 40.9 (34.0-46.0) % MCV 86.2 (80.0-100.0) fL MCH 29.1 (25.0-35.0) pg MCHC 33.8 (31.0-37.0) g/dL RDW 13.6 (11.5-15.5) % Plt Count 188 (150-450) k/uL MPV 8.3 Neutrophils % 59 % Lymphocytes % 32 % Monocytes % 4 % Eosinophils % 4 % Basophils % 0 % Neutrophils # 4.1 (1.3-7.7) k/uL Lymphocytes # 2.2 (1.0-4.8) k/uL Monocytes # 0.3 (0-1.0) k/uL Eosinophils # 0.3 (0-0.7) k/uL Basophils # 0.0 (0-0.2) k/uL PT 9.6 (9.0-12.0) sec INR 0.9 (<1.2) APTT 22.6 (22.0-30.0) sec Sodium 141 (137-145) mmol/L Potassium 4.3 (3.5-5.1) mmol/L Chloride 108 H (98-107) mmol/L Carbon Dioxide 25 (22-30) mmol/L Anion Gap 8 mmol/L BUN 19 H (7-17) mg/dL Creatinine 0.90 (0.52-1.04) mg/dL Est GFR (CKD-EPI)AfAm 84 (>60 ml/min/1.73 sqM) Est GFR (CKD-EPI)NonAf 73 (>60 ml/min/1.73 sqM) Glucose 138 H (74-99) mg/dL Calcium 9.5 (8.4-10.2) mg/dL Magnesium 2.0 (1.6-2.3) mg/dL Total Bilirubin 0.3 (0.2-1.3) mg/dL AST 29 (14-36) U/L ALT 28 (4-34) U/L Alkaline Phosphatase 80 (38-126) U/L Troponin I (0.000-0.034) ng/mL NT-Pro-B Natriuret Pep pg/mL Total Protein 6.6 (6.3-8.2) g/dL Albumin 4.2 (3.5-5.0) g/dL Lipase 142 (23-300) U/L 04/27/21 04/27/21 Range/Units 16:25 16:25 WBC (3.8-10.6) k/uL RBC (3.80-5.40) m/uL Hgb (11.4-16.0) gm/dL Hct (34.0-46.0) % MCV (80.0-100.0) fL MCH (25.0-35.0) pg MCHC (31.0-37.0) g/dL RDW (11.5-15.5) % Plt Count (150-450) k/uL MPV Neutrophils % % Lymphocytes % % Monocytes % % Eosinophils % % Basophils % % Neutrophils # (1.3-7.7) k/uL Lymphocytes # (1.0-4.8) k/uL Monocytes # (0-1.0) k/uL Eosinophils # (0-0.7) k/uL Basophils # (0-0.2) k/uL PT (9.0-12.0) sec INR (<1.2) APTT (22.0-30.0) sec Sodium (137-145) mmol/L Potassium (3.5-5.1) mmol/L Chloride (98-107) mmol/L Carbon Dioxide (22-30) mmol/L Anion Gap mmol/L BUN (7-17) mg/dL Creatinine (0.52-1.04) mg/dL Est GFR (CKD-EPI)AfAm (>60 ml/min/1.73 sqM) Est GFR (CKD-EPI)NonAf (>60 ml/min/1.73 sqM) Glucose (74-99) mg/dL Calcium (8.4-10.2) mg/dL Magnesium (1.6-2.3) mg/dL Total Bilirubin (0.2-1.3) mg/dL AST (14-36) U/L ALT (4-34) U/L Alkaline Phosphatase (38-126) U/L Troponin I <0.012 (0.000-0.034) ng/mL NT-Pro-B Natriuret Pep 228 pg/mL Total Protein (6.3-8.2) g/dL Albumin (3.5-5.0) g/dL Lipase (23-300) U/L Disposition Clinical Impression: Chest pain Disposition: ADMITTED IP TO THIS HOSP Condition: Stable Is patient prescribed a controlled substance at d/c from ED?: No Referrals: Ronald Mejia MD [Primary Care Provider] - 1-2 days Decision to Admit Reason: Admit from EC Decision Date: 04/27/21 Decision Time: 19:09
[2021-04-27 17:14] LABS: INR 0.9 (<1.2); Partial Thromboplastin Time 22.6 sec (22.0-30.0); Prothrombin Time 9.6 sec (9.0-12.0)
--- NOTE | 2021-04-27 17:21 | CT ---
EXAMINATION TYPE: CT angio thor/abd pel aorta DATE OF EXAM: 04/27/2021 COMPARISON: CT chest 02/04/2016 HISTORY: Chest and back pain, hypertension. CT DLP: 2856.7 mGycm Automated exposure control for dose reduction was used. CONTRAST: Performed with IV Contrast, patient injected with 100ml mL of Isovue 370. There are 3-D post processed images. Images obtained from the thoracic inlet to the diaphragm without contrast. Images obtained from the thoracic inlet to the floor the pelvis with IV contrast. FINDINGS: There is mild pulmonary emphysema. There is 1 cm calcified nodule in the subpleural right middle lobe . Heart size is fairly normal. There is no pericardial effusion. There are no hilar masses. There is no mediastinal adenopathy. There is no pleural effusion. There is no pericardial effusion. The thorac ic aorta measures 3.6 cm. There is no aneurysm or dissection. I see no filling defects in the pulmona ry arteries. Liver spleen pancreas appear intact. Stomach is intact. There are clips from cholecystectomy. There is no adrenal mass. Kidneys have normal size and contour. There is normal enhancement of the ki dneys. There is no hydronephrosis. There is no retroperitoneal adenopathy. Ureters are not dilated. B ladder distends smoothly. There is no inguinal hernia. There is no free fluid in the pelvis. There is no mesenteric edema. There is no ascites or free air. There is no bowel obstruction. There is arterial flow in the celiac artery and superior mesenteric artery. There is arterial flow in both renal arteries. There is arterial flow in the iliac and femoral arteries. I see no evidence of hemodynamic stenosis. There is no arterial aneurysm or dissection. The thoracic and lumbar vertebra have normal alignment. There is mild multilevel degenerative disc ch anges in the thoracic and lumbar spine. Sternum is intact. The bony pelvis is intact There is no sign of thickened appendix. There is enlarged left thyroid lobe consistent with multinodu lar goiter and unchanged. IMPRESSION: No evidence of arterial aneurysm or dissection. No sign of hemodynamic stenosis. No evidence of pulmo nary embolism. Right middle lobe calcified granuloma. Pulmonary emphysema.
--- NOTE | 2021-04-27 17:43 | US ---
EXAMINATION TYPE: US venous doppler duplex LE DATE OF EXAM: 04/27/2021 5:31 PM COMPARISON: US CLINICAL HISTORY: b/l swelling. Bilateral leg swelling. Hx DVT. Patient takes aspirin. SIDE PERFORMED: Bilateral TECHNIQUE: The lower extremity deep venous system is examined utilizing real time linear array sonog leonard with graded compression, doppler sonography and color-flow sonography. VESSELS IMAGED: Common Femoral Vein Deep Femoral Vein Greater Saphenous Vein * Femoral Vein Popliteal Vein Small Saphenous Vein * Proximal Calf Veins (* superficial vessels) Exam is slightly limited due to edema. Right Leg: No evidence of DVT in veins imaged at this time. Left Leg: No evidence of DVT in veins imaged at this time. IMPRESSION: No sign of deep vein thrombosis in both legs.
--- NOTE | 2021-04-27 18:18 | XR ---
EXAMINATION TYPE: XR chest 1V portable DATE OF EXAM: 04/27/2021 COMPARISON: 02/04/2016 HISTORY: Left arm pain TECHNIQUE: Adeliada view FINDINGS: There is minimal subsegmental atelectasis right midlung. The other lung mason are clear. T here is no heart failure. Costophrenic angles are clear. There are no hilar masses. There are chest l caryn. IMPRESSION: No heart failure. Mild subsegmental atelectasis appears new compared to old exam.
[2021-04-27] MEDS ORDERED: MORPHINE SULFATE 4 MG/ML SYRINGE IVP STA (18:25)
[2021-04-27] MEDS ORDERED: ACETAMINOPHEN TAB 325 MG TAB PO PRN (19:06)
[2021-04-27] MEDS ORDERED: NALOXONE 0.4 MG/ML 1 ML VIAL IV PRN (19:06)
[2021-04-27] MEDS ORDERED: ASPIRIN 325 MG TAB PO STA (19:06)
[2021-04-27] MEDS ORDERED: ONDANSETRON 4 MG/2 ML VIAL IVP STA (19:28)
[2021-04-27] MEDS ORDERED: hydrALAZINE HCL 20 MG/ML 1 ML VIAL IVP STA (19:30)
--- NOTE | 2021-04-27 21:54 | P.HPIM ---
History of Present Illness H&P Date: 04/27/21 Chief Complaint: Chest pain History of presenting complaint: This is a pleasant 55-year-old patient who follows with Dr. Mejia. Chronic stable medical conditions include hypertension, hyperthyroidism, nicotine dependence. Patient for last few days. Having lower back pain. Worse with activity. Sometimes radiates across the lower back. Does not go down the legs. Also for last 2 days been having noticing some chest pressure but also chest. Does not radiate no dizziness, lightheadedness. Has noticed slight edema. Denies any fever or chills or cough no wheezing. Patient thinks she is put on about 30 pounds in the last 6 months. Patient smokes about a pack a day. Review of systems: GEN.: Tired EYES: None HEENT: None NECK: None RESPIRATORY: None CARDIOVASCULAR: As above GASTROINTESTINAL: None GENITOURINARY: None MUSCULOSKELETAL: As above LYMPHATICS: None HEMATOLOGICAL: None PSYCHIATRY: None NEUROLOGICAL: None Past medical history to include: Hyperthyroid, hypertension Social history: Patient lives with her . Smoked a pack a day for close to 40 years. Alcohol rarely. Family history: Father had a heart attack at age of 59 Physical examination: VITAL SIGNS: 98.2, 75, 18, 180/110, 96% room air GENERAL: BMI 43.9, sitting up on the bed, slightly and comfortable. EYES: Pupils equal. Conjunctiva normal. HEENT: External appearance of nose and ears normal, oral cavity grossly normal. NECK: JVD not raised; masses not palpable. HEART: First and second heart sounds are normal; no edema. LUNGS: Respiratory rate increased; decreased breath sounds. ABDOMEN: Soft, nontender, liver spleen not palpable, no masses palpable. PSYCH: Alert and oriented x3; mood and affect slightly anxiousl. NEUROLOGICAL: Cranial nerves grossly intact; no facial asymmetry, power and sensation grossly intact. LYMPHATICS: No lymph nodes palpable in the axilla and neck INVESTIGATIONS, reviewed in the clinical context: WBC 6.9 hemoglobin 13.8 platelets 188 potassium 4.3 creatinine 0.9 Troponin I less than 0.012 ProBNP 228 EKG tracing personally reviewed by me-normal sinus rhythm Chest x-ray film personally reviewed by me-or rotated to the right normocytic infiltrates Venous Doppler legs: No DVT Thoracic aorta computed tomography scan: No aneurysm or dissection. Emphysema Assessment and plan: -Patient presents with 3 days of central chest pressure. Off and on. EKGs nonspecific. Troponins are negative. Cardiac risk factors include obesity, hypertension, smoker and a positive family history. Start aspirin. Nitrate. Cardiology consultation -Accelerated hypertension Increased dose of lisinopril 20/12.5 twice a day -Morbid obesity bMI 43.9 Dietitian. -COPD in a current smoker Albuterol when necessary -Chronic nicotine dependence, cigarette smoker Nicotine patch 21 -Hyperthyroidism Continue Tapazole -Acute low back pain, likely early osteoarthritis especially in the setting of patient putting on significant weight in the last 6 months Lumbar sacral x-rays. K pad Serial cardiac enzymes. Consult cardiology. Zestoretic 20/12.5 one tablet twice a day. Aspirin, Nitropaste. Past Medical History Past Medical History: Hypertension, Thyroid Disorder Additional Past Medical History / Comment(s): Hyperthyroid History of Any Multi-Drug Resistant Organisms: None Reported Past Surgical History: Section, Cholecystectomy, Hysterectomy Additional Past Surgical History / Comment(s): colonoscopy-normal Past Anesthesia/Blood Transfusion Reactions: No Reported Reaction Past Psychological History: No Psychological Hx Reported Additional Psychological History / Comment(s): Pt resides with her adult neal. She is independent. She drives. Smoking Status: Current every day smoker Past Alcohol Use History: Rare Additional Past Alcohol Use History / Comment(s): Pt states she started smoking at age 16 yrs and is a 1ppd smoker. Past Drug Use History: Marijuana - Past Family History Father Family Medical History: Myocardial Infarction (LA) Additional Family Medical History / Comment(s): Father had a massive LA at age 5 9 yrs Mother Family Medical History: Coronary Artery Disease (CAD), Myocardial Infarction (LA) Additional Family Medical History / Comment(s): Pt believes mother had a LA. She has had a cardiac stent. She is 71 yrs old. Medications and Allergies Home Medications Medication Instructions Recorded Confirmed Type Lisinopril [Zestril] 10 mg PO DAILY 04/27/21 04/27/21 History Methimazole [Tapazole] 7 mg PO DAILY 04/27/21 04/27/21 History Allergies Allergy/AdvReac Type Severity Reaction Status Date / Time No Known Allergies Allergy Verified 04/27/21 17:52 Physical Exam Vitals: Vital Signs Temp Pulse Resp BP Pulse Ox 04/27/21 20:34 98.2 F 77 18 139/83 96 04/27/21 19:10 75 18 180/110 96 04/27/21 18:30 89 17 153/101 96 04/27/21 16:01 98.1 F 99 20 194/91 98 Intake and Output 04/27/21 04/27/21 04/27/21 06:59 14:59 22:59 Other: Weight 127.006 kg Results CBC & Chem 7: 04/27/21 16:25 04/27/21 16:25 Labs: Abnormal Lab Results - Last 24 Hours (Table) 04/27/21 Range/Units 16:25 Chloride 108 H (98-107) mmol/L BUN 19 H (7-17) mg/dL Glucose 138 H (74-99) mg/dL Thrombosis Risk Factor Assmnt - Choose All That Apply Any of the Below Risk Factors Present?: Yes Each Factor Represents 1 point: Age 41-60 years, Obesity (BMI >25) Other Risk Factors: No Other congenital or acquired thrombophilia - If yes, enter type in comment: No Thrombosis Risk Factor Assessment Total Risk Factor Score: 2 Thrombosis Risk Factor Assessment Level: Low Risk
[2021-04-28] MEDS: NITROGLYCERIN OINT 1 INCH/GM PACKET TOPICAL SCH ×3 (00:21→08:33)
[2021-04-28] MEDS: ASPIRIN 81 MG PO SCH ×2 (00:25→08:33)
[2021-04-28] MEDS: LISINOPRIL-HCTZ 20-12.5 MG 1 EACH TAB PO SCH ×2 (00:26→08:33)
[2021-04-28] MEDS: ONDANSETRON 4 MG/2 ML VIAL IVP PRN ×2 (00:30→08:49)
[2021-04-28] MEDS: MORPHINE SULFATE 4 MG/ML SYRINGE IV PRN ×2 (00:30→08:47)
[2021-04-28] MEDS ORDERED: methIMAzole 5 MG TAB PO SCH (09:00)
[2021-04-28] MEDS ORDERED: NICOTINE 21MG/24HR PATCH TRANSDERM SCH (09:00)
[2021-04-28] MEDS ORDERED: lisinopriL 10 MG TAB PO SCH (09:00)
--- NOTE | 2021-04-28 09:50 | P.CRDCN ---
History of Present Illness History of present illness: HISTORY OF PRESENTING ILLNESS This is a pleasant 55-year-old female past medical history significant for hypertension, hyperthyroidism, COPD, chronic nicotine dependence. 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 We have been asked to see in consultation for chest pain. Patient is seen and examined at bedside in no acute distress. Patient states on Monday and Monday she started to have lower back pain. She describes it as shooting. It is worse with activity and walking. She also n oticed that she started to have midsternal chest pressure. The chest pain is intermittent, nonradiating, nonexertional. She states when she does have the chest pressure lasted for about 30 seconds. She states it comes and goes. Every time it does, to the same intensity it does not get worse or more frequent over time. She does endorse some mild shortness of breath. She denies any associated symptoms including palpitations, nausea, diaphoresis. She also denies fatigue, weakness, lightheadedness, syncope. She denies symptoms of orthopnea or PND. She has no aggravating or alleviating factors for the chest pain. For her back pain she states when she bends over the back pain helps. She denies loss of bladder or bowel, denies numbness or tingling. She states she took Tylenol with no relief for the back pain. She denies any injury. She does smoke half a pack per day for about 20 years. She denies alcohol use. She occasionally uses marijuana. She denies history of IN, stroke, diabetes, hyperlipidemia. She endorses family history of coronary artery disease she states that her mother had coronary artery disease and had a stent placed in her early 70s. DIAGNOSTICS EKG reveals sinus rhythm, PVCs, T-wave inversion in III, non-specific ST-T wave changes. Telemetry tracings indicate sinus mechanism, heart rate 60s to 70s Chest xray mild bibasilar atelectasis.. Laboratory reviewed, troponin negative 3, CBC unremarkable, sodium 141, potassium 4.3, BUN 19, serum creatinine 0.9, magnesium 2.0, proBNP 228 REVIEW OF SYSTEMS At the time of my exam: CONSTITUTIONAL: Denies fever or chills. CARDIOVASCULAR: +chest pain, +shortness of breath, Denies orthopnea, PND or palpitations. RESPIRATORY: Denies cough. GASTROINTESTINAL: Denies abdominal pain, diarrhea, constipation, nausea or vomiting. MUSCULOSKELETAL: +lower back pain- shooting NEUROLOGIC: Denies numbness, tingling, headacbe or weakness. ENDOCRINE: Denies fatigue, weight change, polydipsia or polyurina. GENITOURINARY: Denies burning, hematuria or urgency with micturation. HEMATOLOGIC: Denies history of anemia or bleeding. PHYSICAL EXAMINATION Blood pressure 108/69 heart rate 75 afebrile and maintaining oxygen saturation on room air CONSTITUTIONAL: No apparent distress. HEENT: Head is normocephalic. Pupils are equal, round. Sclerae anicteric. Mucous membranes of the mouth are moist. No JVD. No carotid bruit. CHEST EXAMINATION: Lungs are diminished bases to auscultation. No chest wall tenderness is noted on palpation or with deep breathing. HEART EXAMINATION: Regular rate and rhythm. S1, S2 heard. No murmurs, gallops or rub. ABDOMEN: Soft, nontender. Positive bowel sounds. EXTREMITIES: 2+ peripheral pulses, no lower extremity edema and no calf tenderness. SKIN: intact NEUROLOGIC EXAMINATION: Patient is awake, alert and oriented x3. ASSESSMENT Chest pain, atypical, acute coronary syndrome has been ruled out. Hypertension Chronic nicotine dependence COPD PLAN An acute coronary event has been ruled out with no EKG evidence of ischemia and negative cardiac enzymes. Obtain 2D echocardiogram and doppler study to assess cardiac structure and function. If echocardiogram no acute findings, patient can be discharged from a cardiology perspective and follow-up with Dr. Oden in 2 weeks for stress test as an outpatient. Rest of management per primary Follow up with Dr. Oden. Thank you kindly for this consultation. Nurse Practitioner note has been reviewed, I agree with a documented findings and plan of care. Patient was seen and examined. Past Medical History Past Medical History: Hypertension, Thyroid Disorder Additional Past Medical History / Comment(s): Hyperthyroid History of Any Multi-Drug Resistant Organisms: None Reported Past Surgical History: Section, Cholecystectomy, Hysterectomy Additional Past Surgical History / Comment(s): colonoscopy-normal Past Anesthesia/Blood Transfusion Reactions: No Reported Reaction Past Psychological History: No Psychological Hx Reported Additional Psychological History / Comment(s): Pt resides with her adult neal. She is independent. She drives. Smoking Status: Current every day smoker Past Alcohol Use History: Rare Additional Past Alcohol Use History / Comment(s): Pt states she started smoking at age 16 yrs and is a 1ppd smoker. Past Drug Use History: Marijuana - Past Family History Father Family Medical History: Myocardial Infarction (IN) Additional Family Medical History / Comment(s): Father had a massive IN at age 59 yrs Mother Family Medical History: Coronary Artery Disease (CAD), Myocardial Infarction (IN) Additional Family Medical History / Comment(s): Pt believes mother had a IN. She has had a cardiac stent. She is 71 yrs old. Medications and Allergies Home Medications Medication Instructions Recorded Confirmed Type Lisinopril [Zestril] 10 mg PO DAILY 04/27/21 04/27/21 History Methimazole [Tapazole] 7 mg PO DAILY 04/27/21 04/27/21 History Allergies Allergy/AdvReac Type Severity Reaction Status Date / Time No Known Allergies Allergy Verified 04/27/21 17:52 Physical Exam Vitals: Vital Signs Temp Pulse Pulse Resp BP BP Pulse Ox 04/28/21 07:00 97.8 F 75 15 108/69 93 L 04/28/21 01:41 16 04/28/21 00:17 98.3 F 81 16 145/84 96 04/27/21 21:23 98.3 F 81 18 174/94 96 04/27/21 20:34 98.2 F 77 18 139/83 96 04/27/21 19:10 75 18 180/110 96 04/27/21 18:30 89 17 153/101 96 04/27/21 16:01 98.1 F 99 20 194/91 98 Intake and Output 04/27/21 04/28/21 04/28/21 22:59 06:59 14:59 Other: Voiding Method Toilet # Voids 1 2 Weight 127.006 kg Results 04/27/21 16:25 04/27/21 16:25 Cardiac Enzymes 04/27/21 04/27/21 04/27/21 Range/Units 16:25 16:25 21:19 AST 29 (14-36) U/L Troponin I <0.012 <0.012 (0.000-0.034) ng/mL 04/27/21 Range/Units 23:52 AST (14-36) U/L Troponin I <0.012 (0.000-0.034) ng/mL Coagulation 04/27/21 Range/Units 16:25 PT 9.6 (9.0-12.0) sec APTT 22.6 (22.0-30.0) sec CBC 04/27/21 Range/Units 16:25 WBC 6.9 (3.8-10.6) k/uL RBC 4.74 (3.80-5.40) m/uL Hgb 13.8 (11.4-16.0) gm/dL Hct 40.9 (34.0-46.0) % Plt Count 188 (150-450) k/uL Comprehensive Metabolic Panel 04/27/21 Range/Units 16:25 Sodium 141 (137-145) mmol/L Potassium 4.3 (3.5-5.1) mmol/L Chloride 108 H (98-107) mmol/L Carbon Dioxide 25 (22-30) mmol/L BUN 19 H (7-17) mg/dL Creatinine 0.90 (0.52-1.04) mg/dL Glucose 138 H (74-99) mg/dL Calcium 9.5 (8.4-10.2) mg/dL AST 29 (14-36) U/L ALT 28 (4-34) U/L Alkaline Phosphatase 80 (38-126) U/L Total Protein 6.6 (6.3-8.2) g/dL Albumin 4.2 (3.5-5.0) g/dL Current Medications Generic Name Dose Route Start Last Admin Trade Name Freq PRN Reason Stop Dose Admin Acetaminophen 650 mg 04/27/21 19:06 Acetaminophen Tab 325 Mg Tab PO Q6HR PRN Mild Pain or Fever > 100.5 Aspirin 81 mg 04/27/21 22:00 04/28/21 00:25 Aspirin 81 Mg PO 81 mg DAILY OMER Administration Lisinopril/HCTZ 1 each 04/27/21 22:00 04/28/21 00:26 Lisinopril-Hctz 20-12.5 Mg 1 Each Tab PO 1 each BID OMER Administration Methimazole 7 mg 04/28/21 09:00 Methimazole 5 Mg Tab PO DAILY OMER Morphine Sulfate 4 mg 04/27/21 19:06 04/28/21 00:30 Morphine Sulfate 4 Mg/Ml Syringe IV 4 mg Q4HR PRN Administration Severe Pain Naloxone HCl 0.2 mg 04/27/21 19:06 Naloxone 0.4 Mg/Ml 1 Ml Vial IV Q2M PRN Opioid Reversal Nicotine 1 patch 04/28/21 09:00 Nicotine 21mg/24hr Patch TRANSDERM DAILY [facility] Nitroglycerin 0.5 inch 04/27/21 21:48 04/28/21 00:27 Nitroglycerin Oint 1 Inch/Gm Packet TOPICAL Not Given Q8HR [facility] Ondansetron HCl 4 mg 04/27/21 19:06 04/28/21 00:30 Ondansetron 4 Mg/2 Ml Vial IVP 4 mg Q8HR PRN Administration Nausea And Vomiting Intake and Output 04/27/21 04/28/21 04/28/21 22:59 06:59 14:59 Other: Voiding Method Toilet # Voids 1 2 Weight 127.006 kg 04/27/21 16:25 04/27/21 16:25
--- NOTE | 2021-04-28 10:30 | XR ---
EXAMINATION TYPE: XR lumbosacral spine min 4V DATE OF EXAM: 04/28/2021 CLINICAL HISTORY: Acute lower back pain TECHNIQUE: Frontal, lateral, and oblique images of the lumbar spine are obtained. COMPARISON: 11/13/2013 FINDINGS: There are 5 nonrib-bearing lumbar type vertebral bodies. The facets are in alignment. There is mainte nance of the normal lumbar lordosis. No loss of vertebral body height. Narrowing of the intervertebra l disc space at L5-S1 is mild. Tiny anterior osteophytes. Degenerative changes of the facets. Paraver tebral soft tissues are unremarkable. Impression: 1. No acute compression fracture of the lumbar spine. No significant interval change since 11/13/2013 exam.
[2021-04-28 11:09] VITALS: BMI 43.8
--- NOTE | 2021-04-28 13:41 | ECHOF ---
Referral Reason:CP MEASUREMENTS -------- HEIGHT: 170.2 cm WEIGHT: 127.0 kg BP: 145/84 RVIDd: 3.4 cm (< 3.3) IVSd: 1.2 cm (0.6 - 1.1) LVIDd: 5.4 cm (3.9 - 5.3) LVPWd: 1.1 cm (0.6 - 1.1) IVSs: 1.4 cm LVIDs: 3.8 cm LVPWs: 2.0 cm LAESV Index (A-L): 20.43 ml/m Ao Diam: 3.4 cm (2.0 - 3.7) AV Cusp: 2.5 cm (1.5 - 2.6) MV EXCURSION: 15.618 mm (> 18.000) MV EF SLOPE: 54 mm/s (70 - 150) EPSS: 0.8 cm MV E Tank: 0.86 m/s MV DecT: 312 ms MV A Tank: 0.93 m/s MV E/A Ratio: 0.93 RAP: 5.00 mmHg RVSP: 16.07 mmHg FINDINGS -------- Sinus rhythm. This was a technically adequate study. The left ventricular size is normal. There is mild concentric left ventricular hypertrophy. Overa ll left ventricular systolic function is normal with, an EF between 55 - 60 %. The diastolic fillin g pattern is normal for the age of the patient 10.52. The right ventricle is mildly enlarged. Normal LA size by volume 22+/-6 ml/m2. The right atrial size is normal. Interatrial and interventricular septum intact. There is no evidence of aortic regurgitation. There is no evidence of aortic stenosis. There is trace mitral regurgitation. Mild tricuspid regurgitation present. There is no evidence of pulmonary hypertension. The right v entricular systolic pressure, as measured by Doppler, is 16.07mmHg. There is no pulmonic regurgitation present. The aortic root size is normal. IVC Not well visulized. There is no pericardial effusion. CONCLUSIONS -------- 1. The left ventricular size is normal. 2. There is mild concentric left ventricular hypertrophy. 3. Overall left ventricular systolic function is normal with, an EF between 55 - 60 %. 4. The right ventricle is mildly enlarged. 5. There is trace mitral regurgitation. 6. Mild tricuspid regurgitation present. PUBLIC MESSAGE SERVICE SUPERVISOR: Josette Peoples RDCS
[2021-04-28 15:09] VITALS: BP 114/74; PULSE 64; RESP 14; TEMP 98
--- NOTE | 2021-04-28 20:10 | P.DS ---
Providers Date of admission: 04/27/21 19:06 Expected date of discharge: 04/28/21 Attending physician: Emory Armstrong Consults: 04/27/21 19:06 Consult Physician Routine Consulting Provider: Titus Kenney Consult Reason/Comments: CP Do you want consulting provider notified?: Yes Primary care physician: [facility] Course: Chief Complaint: Chest pain History of presenting complaint: This is a pleasant 55-year-old patient who follows with Dr. Mejia. Chronic stable medical conditions include hypertension, hyperthyroidism, nicotine dependence. Patient for last few days. Having lower back pain. Worse with activity. Sometimes radiates across the lower back. Does not go down the legs. Also for last 2 days been having noticing some chest pressure but also chest. Does not radiate no dizziness, lightheadedness. Has noticed slight edema. Denies any fever or chills or cough no wheezing. Patient thinks she is put on about 30 pounds in the last 6 months. Patient smokes about a pack a day. Admitted with possible unstable angina. Troponins are negative. Today: Patient seen by cardiology. Cleared for discharged. Outpatient stress t est. Consultation: Dr. DELROY Oden from cardiology Past medical history to include: Hyperthyroid, hypertension Social history: Patient lives with her . Smoked a pack a day for close to 40 years. Alcohol rarely. Family history: Father had a heart attack at age of 59 Physical examination: VITAL SIGNS: 98, 64, 14, 140/74, 93% room air GENERAL: Sitting up, comfortable EYES: Pupils equal. Conjunctiva normal. HEENT: External appearance of nose and ears normal, oral cavity grossly normal. NECK: JVD not raised; masses not palpable. HEART: First and second heart sounds are normal; no edema. LUNGS: Respiratory rate increased; decreased breath sounds. ABDOMEN: Soft, nontender, liver spleen not palpable, no masses palpable. PSYCH: Alert and oriented x3; mood and affect slightly anxiousl. INVESTIGATIONS, reviewed in the clinical context: WBC 6.9 hemoglobin 13.8 platelets 188 potassium 4.3 creatinine 0.9 Troponin I 3 negative ProBNP 228 EKG tracing personally reviewed by me-normal sinus rhythm Chest x-ray film personally reviewed by me-or rotated to the right normocytic infiltrates Venous Doppler legs: No DVT Thoracic aorta computed tomography scan: No aneurysm or dissection. Emphysema Assessment and plan: -Possible angina. With negative troponin and EKG. Cardiac risk factors include obesity, hypertension, smoker and a positive family history. Aspirin. Outpatient follow-up with cardiology -Accelerated hypertension-not better controlled Increased dose of lisinopril 20/12.5 twice a day -Morbid obesity bMI 43.9 Dietitian. -COPD in a current smoker Albuterol when necessary -Chronic nicotine dependence, cigarette smoker Nicotine patch 21 -Hyperthyroidism Continue Tapazole -Acute low back pain, likely early osteoarthritis especially in the setting of patient putting on significant weight in the last 6 months Lumbar sacral x-rays. K pad Disposition: Home Smoke cessation counseling: This was done with the patient. Nicotine patch is being given. More than 3 minutes was spent for this Patient Condition at Discharge: Stable Plan - Discharge Summary Discharge Rx Participant: No New Discharge Prescriptions: New Aspirin 81 mg PO DAILY chew Nicotine 21Mg/24Hr Patch [Habitrol] 1 patch TRANSDERM DAILY #30 patch Lisinopril-Hctz 20-12.5 mg [Zestoretic 20-12.5] 1 each PO BID #60 tab Continue Methimazole [Tapazole] 7 mg PO DAILY Discontinued Lisinopril [Zestril] 10 mg PO DAILY Discharge Medication List Methimazole [Tapazole] 7 mg PO DAILY 04/27/21 [History] Aspirin 81 mg PO DAILY chew 04/28/21 [Rx] Lisinopril-Hctz 20-12.5 mg [Zestoretic 20-12.5] 1 each PO BID #60 tab 04/28/21 [Rx] Nicotine 21Mg/24Hr Patch [Habitrol] 1 patch TRANSDERM DAILY #30 patch 04/28/21 [Rx] Follow up Appointment(s)/Referral(s): Liss Oden MD [STAFF PHYSICIAN] - 2 Weeks (Office will call with appointment and time.) Ronald Mejia MD [Primary Care Provider] - 1-2 days Patient Instructions/Handouts: Chest Pain (DC) Discharge Disposition: HOME SELF-CARE
[2021-04-28 21:03] LABS: Chol/HDL Ratio 3.89; LDL Cholesterol,Calculated 103.2 mg/dL (0.0-131.0); VLDL Calculation 32.8 mg/dL (5.00-40.00)
== END 2021-04-28 15:29 | disposition home or self-care (01) ==
LOC: EC 15:57 → 6NMEDSUR 19:06
PROVIDERS: ADMIT Hospitalist; ATTEND Hospitalist
DX: R07.89 Other chest pain (principal); I10 Essential (primary) hypertension; E66.01 Morbid (severe) obesity due to excess calories; Z68.41 Body mass index [BMI] 40.0-44.9, adult; J44.9 Chronic obstructive pulmonary disease, unspecified; F17.210 Nicotine dependence, cigarettes, uncomplicated; E05.90 Thyrotoxicosis, unspecified without thyrotoxic crisis or storm; M54.5 Low back pain; M79.89 Other specified soft tissue disorders; F12.90 Cannabis use, unspecified, uncomplicated; I49.3 Ventricular premature depolarization; J98.11 Atelectasis; Z79.899 Other long term (current) drug therapy; Z90.710 Acquired absence of both cervix and uterus; Z90.49 Acquired absence of other specified parts of digestive tract; Z98.891 History of uterine scar from previous surgery; Z82.49 Family history of ischemic heart disease and other diseases of the circulatory system
CPT/HCPCS: 96376; 96374; 96375; 99285; 36415; 93005; 93306; 83880; 80061; 80053; 83690; 83735; 84484 ×2; 85025; 85610; 85730; 72110; 71045; 93970; 71275; 74174; G0378 ×2; S4990; J2270 ×2; J0360; J2405 ×2; Q9967

== ENCOUNTER → 2021-06-04 | Outpatient (CLI) | payer OTHER | END | disposition home or self-care (01) | LOC: RADMRIMAIN 18:43 | PROVIDERS: ATTEND Nurse Practitioner Family | DX: Z53.9 Procedure and treatment not carried out, unspecified reason (principal) ==

== ENCOUNTER 2021-12-02 18:46 | Emergency (ER) | payer OTHER ==
[2021-12-02 19:06] VITALS: TEMP 97.8
--- NOTE | 2021-12-02 19:31 | XR ---
EXAMINATION TYPE: XR chest 2V DATE OF EXAM: 12/02/2021 COMPARISON: 04/27/2021 HISTORY: Chest pain TECHNIQUE: Frontal and lateral views of the chest are obtained. FINDINGS: There is no focal air space opacity, pleural effusion, or pneumothorax seen. The cardiac silhouette size is within normal limits. The osseous structures are intact. There is a nodular dens ity in the right lower lobe laterally which was seen previously on the chest x-ray of 02/04/2016 and m ost likely represents a breast nipple. IMPRESSION: No acute cardiopulmonary process.
[2021-12-02 20:02] LABS: Basophils % (A) 0 %; Eosinophils # (A) 0.3 k/uL (0-0.7); Eosinophils % (A) 4 %; HCT 40.9 % (34.0-46.0); HGB 14.9 gm/dL (11.4-16.0); Lymphocytes # (A) 2.7 k/uL (1.0-4.8); Lymphocytes % (A) 33 %; MCH 32.4 pg (25.0-35.0); MCHC 36.4 g/dL (31.0-37.0); MCV 89.2 fL (80.0-100.0); Mean Platelet Volume 8.3; Monocytes # (A) 0.3 k/uL (0-1.0); Monocytes % (A) 4 %; Neutrophils # (A) 4.9 k/uL (1.3-7.7); Neutrophils % (A) 58 %; Platelet Count 173 k/uL (150-450); RBC 4.59 m/uL (3.80-5.40); RDW 13.1 % (11.5-15.5); WBC 8.3 k/uL (3.8-10.6)
[2021-12-02 20:10] LABS: INR 0.9 (<1.2); Partial Thromboplastin Time 23.5 sec (22.0-30.0); Prothrombin Time 10.2 sec (9.0-12.0)
[2021-12-02 20:16] LABS: Albumin 3.9 g/dL (3.5-5.0); Calcium 9.2 mg/dL (8.4-10.2); Total Bilirubin 0.5 mg/dL (0.2-1.3); Total Protein 6.6 g/dL (6.3-8.2)
[2021-12-02 21:30] VITALS: BP 160/104; PULSE 85; RESP 17
--- NOTE | 2021-12-02 22:47 | ED ---
General Adult HPI - General Chief complaint: Chest Pain Stated complaint: Chest/abd pain Time Seen by Provider: 12/02/21 21:40 Source: patient, RN notes reviewed, old records reviewed Mode of arrival: ambulatory Limitations: no limitations - History of Present Illness Initial comments: Patient is a 56-year-old female past medical history remarkable for hypertension, thyroid disorder who presents emergency Department complaining of a foreign body sensation stuck in her esophagus. She states this started earlier today. She initially felt like something was stuck earlier, which has since resolved but she is complaining of pain with swallowing. She feels like she is able to swallow solids and liquids but then they seem to get stuck. She gets the chest pain in the center of her chest that resolves on its own. Denies any nausea, vomiting. Is uncertain what caused her symptoms. She states they started last night. They are improving. She is tolerating by mouth intake. Denies any other symptoms including shortness breath, abdominal pain, diarrhea, fevers, chills, cough. Has no other acute complaints at this time. Patient was evaluated when she was placed in a room. - Related Data Home Medications Medication Instructions Recorded Confirmed methIMAzole [Tapazole] 7.5 mg PO Q48H 04/27/21 12/02/21 amLODIPine [Norvasc] 2.5 mg PO DAILY 12/02/21 12/02/21 methIMAzole [Tapazole] 5 mg PO Q48H 12/02/21 12/02/21 Previous Rx's Medication Instructions Recorded Famotidine 10 mg PO DAILY 7 Days #7 tab 12/02/21 Mag Hydrox/Al Hydrox/Simeth 30 ml PO BID PRN #300 ml 12/02/21 [Maalox] Allergies Allergy/AdvReac Type Severity Reaction Status Date / Time No Known Allergies Allergy Verified 12/02/21 22:07 Review of Systems ROS Statement: Those systems with pertinent positive or pertinent negative responses have been documented in the HPI. Review of Systems: CONST: Denies fever EYES: Denies blurry vision ENT: Denies nasal congestion C/V: Endorses intermittent chest pain related to swallowing RESP: Denies shortness of breath GI: Denies abdominal pain : Denies dysuria SKIN: Denies rash. MSK: Denies joint pain. NEURO: Denies headache ROS Other: All systems not noted in ROS Statement are negative. Past Medical History Past Medical History: Hypertension, Thyroid Disorder Additional Past Medical History / Comment(s): Hyperthyroid History of Any Multi-Drug Resistant Organisms: None Reported Past Surgical History: Section, Cholecystectomy, Hysterectomy Additional Past Surgical History / Comment(s): colonoscopy-normal Past Anesthesia/Blood Transfusion Reactions: No Reported Reaction Past Psychological History: No Psychological Hx Reported Smoking Status: Current every day smoker Past Alcohol Use History: Rare Past Drug Use History: Marijuana - Past Family History Father Family Medical History: Myocardial Infarction ([place]) Additional Family Medical History / Comment(s): Father had a massive WI at age 59 yrs Mother Family Medical History: Coronary Artery Disease (CAD), Myocardial Infarction ([place]) Additional Family Medical History / Comment(s): Pt believes mother had a WI. She has had a cardiac stent. She is 71 yrs old. General Exam - General Exam Comments Initial Comments: General: Appears in no acute distress. HEAD: Normal with no signs of head trauma. EYES: PERRLA, EOMI, conjunctiva normal, no discharge. ENT: Hearing grossly intact, normal oropharynx. Posterior oropharynx is nonerythematous. No stridor auscultated. RESPIRATORY: Clear breath sounds bilaterally. No wheezes, rales, or rhonchi. C/V: Regular rate and rhythm. S1 and S2 auscultated, no edema, peripheral pulses 2+ and intact throughout. Chest pain is nonreproducible on palpation. ABD: Abd is soft, nontender, nondistended EXT: Normal range of motion, no obvious deformity SKIN: No rashes or lesions observed on exposed skin. NEURO: Alert and oriented 4. Limitations: no limitations Course Vital Signs 12/02/21 12/02/21 19:03 21:28 Temperature 97.8 F Pulse Rate 98 85 Respiratory 16 17 Rate Blood Pressure 200/108 160/104 O2 Sat by Pulse 99 97 Oximetry Medical Decision Making - Medical Decision Making Based on patient's presentation and physical exam, I'm concerned for what was likely esophageal foreign body yesterday that has since passed. She may have abrasions to her esophagus causing her current symptoms as well. Could be esophageal dysmotility. Symptoms are all improving. Cardiac workup revealed a negative troponin. Labs are otherwise unremarkable. EKG showed no acute ischemic process. Chest x-ray revealed no acute cardiopulmonary process. I evaluated the patient on reevaluation, she is tolerating both liquids and solids. She states her symptoms are improved. I discussed with her the likely diagnosis of esophageal dysmotility or priorEsophageal spasm versus fluid bolus. TMs are clear to at this time. I do believe it is safe for her to be discharged home with follow-up with gastroenterology. She was in agreement this plan. I will provide the patient with a prescription for Maalox, famotidine. I instructed the patient to follow up with their PCP in the next 3 days. [I provided contact information for follow up with] Dr. Adams. I explained that the patient should return to the emergency department if they experience any worsening symptoms. Strict return precautions were discussed with the patient. The patient expressed understanding of these instructions. I answered all questions that the patient had. The patient was discharged home in good Condition with their prescriptions and follow up information. - Lab Data Result diagrams: 12/02/21 19:55 12/02/21 19:55 Lab Results 12/02/21 12/02/21 12/02/21 Range/Units 19:55 19:55 19:55 WBC 8.3 (3.8-10.6) k/uL RBC 4.59 (3.80-5.40) m/uL Hgb 14.9 (11.4-16.0) gm/dL Hct 40.9 (34.0-46.0) % MCV 89.2 (80.0-100.0) fL MCH 32.4 (25.0-35.0) pg MCHC 36.4 (31.0-37.0) g/dL RDW 13.1 (11.5-15.5) % Plt Count 173 (150-450) k/uL MPV 8.3 Neutrophils % 58 % Lymphocytes % 33 % Monocytes % 4 % Eosinophils % 4 % Basophils % 0 % Neutrophils # 4.9 (1.3-7.7) k/uL Lymphocytes # 2.7 (1.0-4.8) k/uL Monocytes # 0.3 (0-1.0) k/uL Eosinophils # 0.3 (0-0.7) k/uL Basophils # 0.0 (0-0.2) k/uL PT 10.2 (9.0-12.0) sec INR 0.9 (<1.2) APTT 23.5 (22.0-30.0) sec Sodium 137 (137-145) mmol/L Potassium 4.0 (3.5-5.1) mmol/L Chloride 109 H (98-107) mmol/L Carbon Dioxide 23 (22-30) mmol/L Anion Gap 5 mmol/L BUN 13 (7-17) mg/dL Creatinine 0.91 (0.52-1.04) mg/dL Est GFR (CKD-EPI)AfAm 82 (>60 ml/min/1.73 sqM) Est GFR (CKD-EPI)NonAf 71 (>60 ml/min/1.73 sqM) Glucose 107 H (74-99) mg/dL Calcium 9.2 (8.4-10.2) mg/dL Magnesium 2.0 (1.6-2.3) mg/dL Total Bilirubin 0.5 (0.2-1.3) mg/dL AST 15 (14-36) U/L ALT 15 (4-34) U/L Alkaline Phosphatase 84 (38-126) U/L Troponin I (0.000-0.034) ng/mL Total Protein 6.6 (6.3-8.2) g/dL Albumin 3.9 (3.5-5.0) g/dL 12/02/21 Range/Units 19:55 WBC (3.8-10.6) k/uL RBC (3.80-5.40) m/uL Hgb (11.4-16.0) gm/dL Hct (34.0-46.0) % MCV (80.0-100.0) fL MCH (25.0-35.0) pg MCHC (31.0-37.0) g/dL RDW (11.5-15.5) % Plt Count (150-450) k/uL MPV Neutrophils % % Lymphocytes % % Monocytes % % Eosinophils % % Basophils % % Neutrophils # (1.3-7.7) k/uL Lymphocytes # (1.0-4.8) k/uL Monocytes # (0-1.0) k/uL Eosinophils # (0-0.7) k/uL Basophils # (0-0.2) k/uL PT (9.0-12.0) sec INR (<1.2) APTT (22.0-30.0) sec Sodium (137-145) mmol/L Potassium (3.5-5.1) mmol/L Chloride (98-107) mmol/L Carbon Dioxide (22-30) mmol/L Anion Gap mmol/L BUN (7-17) mg/dL Creatinine (0.52-1.04) mg/dL Est GFR (CKD-EPI)AfAm (>60 ml/min/1.73 sqM) Est GFR (CKD-EPI)NonAf (>60 ml/min/1.73 sqM) Glucose (74-99) mg/dL Calcium (8.4-10.2) mg/dL Magnesium (1.6-2.3) mg/dL Total Bilirubin (0.2-1.3) mg/dL AST (14-36) U/L ALT (4-34) U/L Alkaline Phosphatase (38-126) U/L Troponin I <0.012 (0.000-0.034) ng/mL Total Protein (6.3-8.2) g/dL Albumin (3.5-5.0) g/dL - EKG Data -: EKG Interpreted by Me EKG Comments: 12-lead Electrocardiogram Interpretation Note EKG was reviewed and interpreted by myself. 12-lead ECG performed at 1948 is interpreted by me as revealing normal sinus rhythm at a rate of 89 beats per minute. Slight left axis deviation, TX interval is 159 ms, QRS duration of 100 ms, QTc is 394 ms.. There were no ST or T wave abnormalities to suggest myoc ardial ischemia or injury. R wave progression across the precordium was satisfactory. By my interpretation this EKG is non-diagnostic for acute ischemia. Disposition Clinical Impression: Esophageal dysmotility, Esophageal foreign body Disposition: HOME SELF-CARE Condition: Good Instructions (If sedation given, give patient instructions): Esophageal Foreign Body (ED) Prescriptions: Famotidine 10 mg PO DAILY 7 Days #7 tab Mag Hydrox/Al Hydrox/Simeth [Maalox] 30 ml PO BID PRN #300 ml PRN Reason: Dyspepsia Is patient prescribed a controlled substance at d/c from ED?: No Referrals: Diana Messina CRNP [Primary Care Provider] - 1-2 days Tri Adams MD [STAFF PHYSICIAN] - 1-2 days
== END 2021-12-02 23:00 | disposition home or self-care (01) ==
LOC: EC 18:46
DX: T18.108A Unspecified foreign body in esophagus causing other injury, initial encounter (principal); I10 Essential (primary) hypertension; F17.200 Nicotine dependence, unspecified, uncomplicated; Z79.899 Other long term (current) drug therapy
CPT/HCPCS: 36415; 71046; 80053; 83735; 84484; 85025; 85610; 85730; 93005; 99285

== ENCOUNTER 2022-10-07 20:22 | Emergency (ER) | payer OTHER ==
[2022-10-07 20:28] VITALS: RESP 16; TEMP 98.6
[2022-10-07] MEDS ORDERED: SODIUM CHLORIDE 0.9% 1,000 ML IV STA (21:26)
[2022-10-07 21:43] LABS: Basophils % (A) 0 %; Eosinophils % (A) 0 %; HCT 41.7 % (34.0-46.0); HGB 14.3 gm/dL (11.4-16.0); Lymphocytes # (A) 1.5 k/uL (1.0-4.8); Lymphocytes % (A) 24 %; MCH 29.8 pg (25.0-35.0); MCHC 34.4 g/dL (31.0-37.0); MCV 86.6 fL (80.0-100.0); Mean Platelet Volume 9.5; Monocytes # (A) 0.3 k/uL (0-1.0); Monocytes % (A) 4 %; Neutrophils # (A) 4.4 k/uL (1.3-7.7); Neutrophils % (A) 69 %; Platelet Count 196 k/uL (150-450); RBC 4.81 m/uL (3.80-5.40); RDW 13.5 % (11.5-15.5); WBC 6.3 k/uL (3.8-10.6)
[2022-10-07 21:54] LABS: INR 0.9 (<1.2); Partial Thromboplastin Time 22.1 sec (22.0-30.0); Prothrombin Time 9.8 sec (9.0-12.0)
[2022-10-07 21:55] LABS: Albumin 4.3 g/dL (3.5-5.0); Calcium 9.5 mg/dL (8.4-10.2); Potassium 4.2 mmol/L (3.5-5.1); Total Bilirubin 0.3 mg/dL (0.2-1.3)
[2022-10-07] MEDS ORDERED: methylPREDNISolone SOD SUCCI 125 MG/2 ML VIAL IV STA (22:04)
--- NOTE | 2022-10-07 22:15 | XR ---
EXAMINATION TYPE: XR chest 2V DATE OF EXAM: 10/07/2022 9:46 PM COMPARISON: CT 04/27/2021. TECHNIQUE: XR chest 2V Frontal and lateral views of the chest. CLINICAL INDICATION:Female, 57 years old with history of difficulty breathing; FINDINGS: Lungs/Pleura: There is no evidence of pleural effusion, focal consolidation, or pneumothorax. There is a nodular density measuring 14 mm in the right lower lung, as seen on prior. Pulmonary vascularity: Unremarkable. Heart/mediastinum: Cardiomediastinal silhouette is unremarkable. Musculoskeletal: No acute osseous pathology. IMPRESSION: 1. No acute cardiopulmonary disease/process. 2. Right lower lung 14 mm nodule density. Similar to prior CT 04/27/2021
[2022-10-07] MEDS ORDERED: ALBUTEROL NEBULIZED 2.5 MG/3 ML INHALATION STA (22:36)
[2022-10-07 23:03] VITALS: BP 149/88; PULSE 78
--- NOTE | 2022-10-07 23:15 | ED ---
SOB HPI - General Chief Complaint: Shortness of Breath Stated Complaint: SELIN Time Seen by Provider: 10/07/22 21:26 Source: patient Mode of arrival: ambulatory - History of Present Illness Initial Comments: Patient is a 57-year-old female who presents emergency Department with shortness of breath on exertion. Patient states she was diagnosed with possible pneumonia at the urgent care 2 days ago. She reports negative influenza and Covid tests. She was sent home with doxycycline, Augmentin, and prednisone. Patient states her cough has improved substantially however she still feels short of breath on exertion. She denies fever, chills, chest pain, nausea, vomiting. Patient has been using albuterol nebulizer treatments at home. She does not have history of asthma or COPD. She is a current smoker, 30 pack year history. Denies leg pain and swelling. I did review patient's x-ray results from urgent care which shows peribronchial cuffing and a nodular right-sided density. - Related Data Home Medications Medication Instructions Recorded Confirmed methIMAzole [Tapazole] 7.5 mg PO Q48H 04/27/21 12/02/21 amLODIPine [Norvasc] 2.5 mg PO DAILY 12/02/21 12/02/21 methIMAzole [Tapazole] 5 mg PO Q48H 12/02/21 12/02/21 Previous Rx's Medication Instructions Recorded Famotidine 10 mg PO DAILY 7 Days #7 tab 12/02/21 Mag Hydrox/Al Hydrox/Simeth 30 ml PO BID PRN #300 ml 12/02/21 [Maalox] Allergies Allergy/AdvReac Type Severity Reaction Status Date / Time No Known Allergies Allergy Verified 10/07/22 20:28 Review of Systems ROS Statement: Those systems with pertinent positive or pertinent negative responses have been documented in the HPI. ROS Other: All systems not noted in ROS Statement are negative. Past Medical History Past Medical History: Hypertension, Thyroid Disorder Additional Past Medical History / Comment(s): Hyperthyroid History of Any Multi-Drug Resistant Organisms: None Reported Past Surgical History: Section, Cholecystectomy, Hysterectomy Additional Past Surgical History / Comment(s): colonoscopy-normal Past Anesthesia/Blood Transfusion Reactions: No Reported Reaction Past Psychological History: No Psychological Hx Reported Smoking Status: Current every day smoker Past Alcohol Use History: Rare Past Drug Use History: Marijuana - Past Family History Father Family Medical History: Myocardial Infarction ([place]) Additional Family Medical History / Comment(s): Father had a massive [place] at age 59 yrs Mother Family Medical History: Coronary Artery Disease (CAD), Myocardial Infarction ([place]) Additional Family Medical History / Comment(s): Pt believes mother had a [place]. She has had a cardiac stent. She is 71 yrs old. General Exam General appearance: alert, in no apparent distress Head exam: Present: atraumatic, normocephalic, normal inspection Respiratory exam: Present: normal lung sounds bilaterally, wheezes (mild, lower lobes). Absent: respiratory distress, rales, rhonchi, stridor Cardiovascular Exam: Present: regular rate, normal rhythm, normal heart sounds. Absent: systolic murmur, diastolic murmur, rubs, gallop, clicks Extremities exam: Present: normal inspection, normal capillary refill. Absent: calf tenderness Neurological exam: Present: alert, oriented X3, CN II-XII intact Psychiatric exam: Present: normal affect, normal mood Skin exam: Present: warm, dry, intact, normal color. Absent: rash Course Vital Signs 10/07/22 10/07/22 10/07/22 20:25 21:33 22:49 Temperature 98.6 F Pulse Rate 85 70 63 Respiratory 16 16 Rate Blood Pressure 190/83 166/92 O2 Sat by Pulse 92 L 95 Oximetry 10/07/22 10/07/22 22:56 23:00 Temperature Pulse Rate 69 78 Respiratory 16 Rate Blood Pressure 149/88 O2 Sat by Pulse 95 Oximetry Medical Decision Making - Medical Decision Making This is a 57-year-old female presenting with shortness of breath on exertion. Patient well appearing and in no apparent distress. No hypoxia or increased work of breathing. Laboratory studies obtained. There is no leukocytosis. Troponin is within normal limits. Influenza A is detected. Chest x-ray obtained interpreted by me which shows no acute cardiopulmonary disease/process. There is no focal consolidation. There is a right lower lung 14 mm nodule density, similar to prior CT and 04/27/21. Patient IV Solu-Medrol and breathing treatment. Wheezing resolved. Results discussed with patient. Symptoms likely related to influenza. I do not suspect the patient has a bacterial pneumonia. She is instructed to stop these prescriptions. We did talk about the incidental x-ray findings which patient is aware of. We discussed the importance of smoking cessation. Patient will be discharged with instruction to continue nebulizer treatments and prednisone prescription. Dr. Parekh is my attending. - Lab Data Result diagrams: 10/07/22 21:31 10/07/22 21:31 Lab Results 10/07/22 10/07/22 10/07/22 Range/Units 21:31 21:31 21:31 WBC 6.3 (3.8-10.6) k/uL RBC 4.81 (3.80-5.40) m/uL Hgb 14.3 (11.4-16.0) gm/dL Hct 41.7 (34.0-46.0) % MCV 86.6 (80.0-100.0) fL MCH 29.8 (25.0-35.0) pg MCHC 34.4 (31.0-37.0) g/dL RDW 13.5 (11.5-15.5) % Plt Count 196 (150-450) k/uL MPV 9.5 Neutrophils % 69 % Lymphocytes % 24 % Monocytes % 4 % Eosinophils % 0 % Basophils % 0 % Neutrophils # 4.4 (1.3-7.7) k/uL Lymphocytes # 1.5 (1.0-4.8) k/uL Monocytes # 0.3 (0-1.0) k/uL Eosinophils # 0.0 (0-0.7) k/uL Basophils # 0.0 (0-0.2) k/uL PT 9.8 (9.0-12.0) sec INR 0.9 (<1.2) APTT 22.1 (22.0-30.0) sec Sodium 140 (137-145) mmol/L Potassium 4.2 (3.5-5.1) mmol/L Chloride 106 (98-107) mmol/L Carbon Dioxide 25 (22-30) mmol/L Anion Gap 9 mmol/L BUN 17 (7-17) mg/dL Creatinine 1.00 (0.52-1.04) mg/dL Est GFR (CKD-EPI)AfAm 73 (>60 ml/min/1.73 sqM) Est GFR (CKD-EPI)NonAf 64 (>60 ml/min/1.73 sqM) Glucose 123 H (74-99) mg/dL Calcium 9.5 (8.4-10.2) mg/dL Total Bilirubin 0.3 (0.2-1.3) mg/dL AST 25 (14-36) U/L ALT 27 (4-34) U/L Alkaline Phosphatase 82 (38-126) U/L Troponin I (0.000-0.034) ng/mL Total Protein 7.0 (6.3-8.2) g/dL Albumin 4.3 (3.5-5.0) g/dL Influenza Type A (PCR) (Not Detectd) Influenza Type B (PCR) (Not Detectd) RSV (PCR) (Not Detectd) SARS-CoV-2 (PCR) (Not Detectd) 10/07/22 10/07/22 Range/Units 21:31 21:31 WBC (3.8-10.6) k/uL RBC (3.80-5.40) m/uL Hgb (11.4-16.0) gm/dL Hct (34.0-46.0) % MCV (80.0-100.0) fL MCH (25.0-35.0) pg MCHC (31.0-37.0) g/dL RDW (11.5-15.5) % Plt Count (150-450) k/uL MPV Neutrophils % % Lymphocytes % % Monocytes % % Eosinophils % % Basophils % % Neutrophils # (1.3-7.7) k/uL Lymphocytes # (1.0-4.8) k/uL Monocytes # (0-1.0) k/uL Eosinophils # (0-0.7) k/uL Basophils # (0-0.2) k/uL PT (9.0-12.0) sec INR (<1.2) APTT (22.0-30.0) sec Sodium (137-145) mmol/L Potassium (3.5-5.1) mmol/L Chloride (98-107) mmol/L Carbon Dioxide (22-30) mmol/L Anion Gap mmol/L BUN (7-17) mg/dL Creatinine (0.52-1.04) mg/dL Est GFR (CKD-EPI)AfAm (>60 ml/min/1.73 sqM) Est GFR (CKD-EPI)NonAf (>60 ml/min/1.73 sqM) Glucose (74-99) mg/dL Calcium (8.4-10.2) mg/dL Total Bilirubin (0.2-1.3) mg/dL AST (14-36) U/L ALT (4-34) U/L Alkaline Phosphatase (38-126) U/L Troponin I <0.012 (0.000-0.034) ng/mL Total Protein (6.3-8.2) g/dL Albumin (3.5-5.0) g/dL Influenza Type A (PCR) Detected A (Not Detectd) Influenza Type B (PCR) Not Detected (Not Detectd) RSV (PCR) Not Detected (Not Detectd) SARS-CoV-2 (PCR) Not Detected (Not Detectd) - EKG Data EKG Comments: EKG taken at 20:34, interpreted by mn Sinus rhythm, T-wave inversions in lead III, similar to prior EKG, no other ST is T wave abnormalities Chest x-ray rate 73 NH interval 163 QRS duration 102 QTC 406 Disposition Clinical Impression: Influenza A, Shortness of breath Disposition: HOME SELF-CARE Condition: Good Instructions (If sedation given, give patient instructions): Influenza (ED) Additional Instructions: Continue nebulizer treatment. Increase water intake. Follow-up with primary care provider in one to 2 days. Return to the emergency department if you experience new, concerning, or worsening symptoms. Is patient prescribed a controlled substance at d/c from ED?: No Referrals: Ronald Mejia MD [Primary Care Provider] - 1-2 days Time of Disposition: 23:15
[2022-10-08] MEDS ORDERED: ALBUTEROL NEB (CONC) 2.5 MG/0.5 ML INHALATION SCH (08:00)
[2022-10-08] MEDS ORDERED: ALBUTEROL NEBULIZED 2.5 MG/3 ML INHALATION SCH (09:00)
== END 2022-10-07 23:25 | disposition home or self-care (01) ==
LOC: EC 20:22
DX: J10.1 Influenza due to other identified influenza virus with other respiratory manifestations (principal); I10 Essential (primary) hypertension; F17.210 Nicotine dependence, cigarettes, uncomplicated; F12.90 Cannabis use, unspecified, uncomplicated; Z79.899 Other long term (current) drug therapy; Z20.822 Contact with and (suspected) exposure to COVID-19
CPT/HCPCS: 36415; 94640; 93005; 80053; 84484; 85025; 85610; 85730; 87636; 71046; 99285; 96374; 96361 ×2; J2930

== ENCOUNTER 2022-10-19 22:25 | Emergency (ER) | payer OTHER ==
[2022-10-19 22:39] VITALS: RESP 16
[2022-10-19] MEDS ORDERED: SODIUM CHLORIDE 0.9% 1,000 ML IV STA (23:24)
[2022-10-19 23:39] LABS: Basophils # (A) 0.1 k/uL (0-0.2); Basophils % (A) 1 %; Eosinophils # (A) 0.2 k/uL (0-0.7); Eosinophils % (A) 2 %; HCT 43.9 % (34.0-46.0); HGB 14.8 gm/dL (11.4-16.0); Lymphocytes # (A) 2.7 k/uL (1.0-4.8); Lymphocytes % (A) 30 %; MCH 29.5 pg (25.0-35.0); MCHC 33.7 g/dL (31.0-37.0); MCV 87.5 fL (80.0-100.0); Monocytes # (A) 0.4 k/uL (0-1.0); Monocytes % (A) 4 %; Neutrophils # (A) 5.6 k/uL (1.3-7.7); Neutrophils % (A) 62 %; Platelet Count 209 k/uL (150-450); RBC 5.01 m/uL (3.80-5.40); RDW 13.2 % (11.5-15.5)
--- NOTE | 2022-10-19 23:45 | ED ---
Recheck HPI - General Chief Complaint: Recheck/Abnormal Lab/Rx Stated Complaint: high BP Time Seen by Provider: 10/19/22 23:16 Source: patient Mode of arrival: ambulatory Limitations: no limitations - History of Present Illness Initial Comments: Patient is a 57-year-old female presenting with chief complaint of hypertension. Patient has history of hypertension and has been adhering to her medication regimen, however she states that today when she took her blood pressure home and it read 170/114. It has been elevated throughout the day today. Patient admits to mild exertional dyspnea. Patient states that she does notice some very mild intermittent chest discomfort. No abdominal pain, nausea, vomiting. No headache, vision or hearing changes, fever, chills, cough, congestion, sore throat. No dizziness or syncope. - Related Data Home Medications Medication Instructions Recorded Confirmed methIMAzole [Tapazole] 7.5 mg PO Q48H 04/27/21 12/02/21 amLODIPine [Norvasc] 2.5 mg PO DAILY 12/02/21 12/02/21 methIMAzole [Tapazole] 5 mg PO Q48H 12/02/21 12/02/21 Previous Rx's Medication Instructions Recorded Famotidine 10 mg PO DAILY 7 Days #7 tab 12/02/21 Mag Hydrox/Al Hydrox/Simeth 30 ml PO BID PRN #300 ml 12/02/21 [Maalox] Allergies Allergy/AdvReac Type Severity Reaction Status Date / Time No Known Allergies Allergy Verified 10/07/22 20:28 Review of Systems ROS Statement: Those systems with pertinent positive or pertinent negative responses have been documented in the HPI. ROS Other: All systems not noted in ROS Statement are negative. Past Medical History Past Medical History: Hypertension, Thyroid Disorder Additional Past Medical History / Comment(s): Hyperthyroid History of Any Multi-Drug Resistant Organisms: None Reported Past Surgical History: Section, Cholecystectomy, Hysterectomy Additional Past Surgical History / Comment(s): colonoscopy-normal Past Anesthesia/Blood Transfusion Reactions: No Reported Reaction Past Psychological History: No Psychological Hx Reported Smoking Status: Current every day smoker Past Alcohol Use History: Rare Past Drug Use History: Marijuana - Past Family History Father Family Medical History: Myocardial Infarction (PA) Additional Family Medical History / Comment(s): Father had a massive PA at age 59 yrs Mother Family Medical History: Coronary Artery Disease (CAD), Myocardial Infarction (PA) Additional Family Medical History / Comment(s): Pt believes mother had a PA. She has had a cardiac stent. She is 71 yrs old. General Exam Limitations: no limitations General appearance: alert, in no apparent distress Head exam: Present: atraumatic, normocephalic, normal inspection Eye exam: Present: normal appearance, PERRL, EOMI. Absent: scleral icterus, conjunctival injection, periorbital swelling Neck exam: Present: full ROM Respiratory exam: Present: normal lung sounds bilaterally. Absent: respiratory distress, wheezes, rales, rhonchi, stridor Cardiovascular Exam: Present: regular rate, normal rhythm, normal heart sounds. Absent: systolic murmur, diastolic murmur, rubs, gallop, clicks Neurological exam: Present: alert, oriented X3, CN II-XII intact Expanded Patient oriented to: Present: person, place, time Speech: Present: fluid speech Motor strength exam: RUE: 5, LUE: 5, RLE: 5, LLE: 5 Eye Response: (4) open spontaneously Motor Response: (6) obeys commands Verbal Response: (5) oriented Reddy Total: 15 Psychiatric exam: Present: normal affect, normal mood Skin exam: Present: warm, dry, intact, normal color. Absent: rash Course Vital Signs 10/19/22 10/19/22 10/20/22 22:34 23:10 00:24 Temperature 98.2 F Pulse Rate 84 81 78 Respiratory 16 16 16 Rate Blood Pressure 174/113 176/96 142/88 O2 Sat by Pulse 98 97 99 Oximetry 10/20/22 01:39 Temperature 98.6 F Pulse Rate 71 Respiratory 16 Rate Blood Pressure 148/85 O2 Sat by Pulse 96 Oximetry Medical Decision Making - Medical Decision Making Was pt. sent in by a medical professional or institution (, PA, [facility], urgent ca re, hospital, or half-way...) When possible be specific @ -[No] Did you speak to anyone other than the patient for history (EMS, parent, family, police, friend...)? What history was obtained from this source @ -[No] Did you review nursing and triage notes (agree or disagree)? Why? @ -[I reviewed and agree with nursing and triage notes] Were old charts reviewed (outside hosp., previous admission, EMS record, old EKG, old radiological studies, urgent care reports/EKG's, half-way records)? Report findings @ -[No old charts were reviewed] Differential Diagnosis (chest pain, altered mental status, abdominal pain women, abdominal pain men, vaginal bleeding, weakness, fever, dyspnea, syncope, headache, dizziness, GI bleed, back pain, seizure, CVA, palpatations, mental health)? @Differential includes uncontrolled hypertension, infectious process, kidney disease, this is not meant to be a comprehensive list EKG interpreted by me (3pts min.). @ -Yes, sinus rhythm X-rays interpreted by me (1pt min.). @ -Yes, no acute process CT interpreted by me (1pt min.). @ -[None done] U/S interpreted by me (1pt. min.). @ -[None done] What testing was considered but not performed or refused? (CT, X-rays, U/S, labs)? Why? @ -[None] What meds were considered but not given or refused? Why? @ -[None] Did you discuss the management of the patient with other professionals (tate rivera i.e. , PA, [facility], lab, RT, psych nurse, social services specialist, personnel monitor, teacher, morale officer, machine adjuster leader case trim)? Give summary @ -[No] Was smoking cessation discussed for >3mins.? @ -[No] Was critical care preformed (if so, how long)? @ -[No] Were there social determinants of health that impacted care today? How? (Homelessness, low income, unemployed, alcoholism, drug addiction, transp ortation, low edu. Level, literacy, decrease access to med. care, senior care, rehab)? @ -[No] Was there de-escalation of care discussed even if they declined (Discuss DNR or withdrawal of care, Hospice)? DNR status @ -[No] What co-morbidities impacted this encounter? (DM, HTN, Smoking, COPD, CAD, Cancer, CVA, ARF, Chemo, Hep., AIDS, mental health diagnosis, sleep apnea, morbid obesity)? @ -Hypertension, thyroid disorder Was patient admitted / discharged? Hospital course, mention meds given and route, prescriptions, significant lab abnormalities, going to OR and other pertinent info. @ -Patient is a 57-year-old female coming in for evaluation of hypertension. Patient states that her blood pressure has been elevated consistently today reading about 170/114. She is otherwise asymptomatic. Physical examination is unremarkable. Lab studies show no leukocytosis or anemia. Creatinine is 1.28, mildly elevated from baseline. EKG shows no ischemic changes. Troponin is less than 0.012. BNP is 374. Patient is negative for influenza, RSV, and Covid. Chest x-ray shows no acute process. On reassessment patient's blood pressure is coming down to her baseline range. Patient is continuing to feel well. She is comfortable with discharge home at this time. Follow-up with PCP. Report back to ER with any new or worsening symptoms. Discussed return parameters and answered all questions. Patient conveyed verbal understanding and agreed to the plan. I discussed this case in detail with my attending Dr. Pearson Undiagnosed new problem with uncertain prognosis? @ -[No] Drug Therapy requiring intensive monitoring for toxicity (Heparin, Nitro, Insulin, Cardizem)? @ -[No] Were any procedures done? @ -[No] Diagnosis/symptom? @ -Hypertension Acute, or Chronic, or Acute on Chronic? @ -Acute on chronic Uncomplicated (without systemic symptoms) or Complicated (systemic symptoms)? @ -Uncomplicated Side effects of treatment? @ -[No] Exacerbation, Progression, or Severe Exacerbation? @ -[No] Poses a threat to life or bodily function? How? (Chest pain, USA, PA, pneumonia, PE, COPD, DKA, ARF, appy, cholecystitis, CVA, Diverticulitis, Homicidal, Suicidal, threat to staff... and all critical care pts) @ -[No] - Lab Data Result diagrams: 10/19/22 23:27 10/19/22 23:27 Lab Results 10/19/22 10/19/22 10/19/22 Range/Units 23:27 23:27 23:27 WBC 9.0 (3.8-10.6) k/uL RBC 5.01 (3.80-5.40) m/uL Hgb 14.8 (11.4-16.0) gm/dL Hct 43.9 (34.0-46.0) % MCV 87.5 (80.0-100.0) fL MCH 29.5 (25.0-35.0) pg MCHC 33.7 (31.0-37.0) g/dL RDW 13.2 (11.5-15.5) % Plt Count 209 (150-450) k/uL MPV 9.0 Neutrophils % 62 % Lymphocytes % 30 % Monocytes % 4 % Eosinophils % 2 % Basophils % 1 % Neutrophils # 5.6 (1.3-7.7) k/uL Lymphocytes # 2.7 (1.0-4.8) k/uL Monocytes # 0.4 (0-1.0) k/uL Eosinophils # 0.2 (0-0.7) k/uL Basophils # 0.1 (0-0.2) k/uL PT 9.6 (9.0-12.0) sec INR 0.9 (<1.2) APTT 23.4 (22.0-30.0) sec Sodium 138 (137-145) mmol/L Potassium 4.4 (3.5-5.1) mmol/L Chloride 107 (98-107) mmol/L Carbon Dioxide 27 (22-30) mmol/L Anion Gap 4 mmol/L BUN 14 (7-17) mg/dL Creatinine 1.28 H (0.52-1.04) mg/dL Est GFR (CKD-EPI)AfAm 54 (>60 ml/min/1.73 sqM) Est GFR (CKD-EPI)NonAf 47 (>60 ml/min/1.73 sqM) Glucose 117 H (74-99) mg/dL Calcium 9.4 (8.4-10.2) mg/dL Magnesium 2.1 (1.6-2.3) mg/dL Total Bilirubin 0.5 (0.2-1.3) mg/dL AST 22 (14-36) U/L ALT 29 (4-34) U/L Alkaline Phosphatase 89 (38-126) U/L Troponin I (0.000-0.034) ng/mL NT-Pro-B Natriuret Pep pg/mL Total Protein 6.8 (6.3-8.2) g/dL Albumin 4.2 (3.5-5.0) g/dL Influenza Type A (PCR) (Not Detectd) Influenza Type B (PCR) (Not Detectd) RSV (PCR) (Not Detectd) SARS-CoV-2 (PCR) (Not Detectd) 12/28/22 12/28/22 12/28/22 Range/Units 23:27 23:29 23:40 WBC (3.8-10.6) k/uL RBC (3.80-5.40) m/uL Hgb (11.4-16.0) gm/dL Hct (34.0-46.0) % MCV (80.0-100.0) fL MCH (25.0-35.0) pg MCHC (31.0-37.0) g/dL RDW (11.5-15.5) % Plt Count (150-450) k/uL MPV Neutrophils % % Lymphocytes % % Monocytes % % Eosinophils % % Basophils % % Neutrophils # (1.3-7.7) k/uL Lymphocytes # (1.0-4.8) k/uL Monocytes # (0-1.0) k/uL Eosinophils # (0-0.7) k/uL Basophils # (0-0.2) k/uL PT (9.0-12.0) sec INR (<1.2) APTT (22.0-30.0) sec Sodium (137-145) mmol/L Potassium (3.5-5.1) mmol/L Chloride (98-107) mmol/L Carbon Dioxide (22-30) mmol/L Anion Gap mmol/L BUN (7-17) mg/dL Creatinine (0.52-1.04) mg/dL Est GFR (CKD-EPI)AfAm (>60 ml/min/1.73 sqM) Est GFR (CKD-EPI)NonAf (>60 ml/min/1.73 sqM) Glucose (74-99) mg/dL Calcium (8.4-10.2) mg/dL Magnesium (1.6-2.3) mg/dL Total Bilirubin (0.2-1.3) mg/dL AST (14-36) U/L ALT (4-34) U/L Alkaline Phosphatase (38-126) U/L Troponin I <0.012 (0.000-0.034) ng/mL NT-Pro-B Natriuret Pep 374 pg/mL Total Protein (6.3-8.2) g/dL Albumin (3.5-5.0) g/dL Influenza Type A (PCR) Not Detected (Not Detectd) Influenza Type B (PCR) Not Detected (Not Detectd) RSV (PCR) Not Detected (Not Detectd) SARS-CoV-2 (PCR) Not Detected (Not Detectd) Disposition Clinical Impression: Hypertension Disposition: HOME SELF-CARE Condition: Good Instructions (If sedation given, give patient instructions): Chronic Hype rtension (ED) Additional Instructions: Follow-up with PCP. Report back to ER with any new or worsening symptoms. Is patient prescribed a controlled substance at d/c from ED?: No Referrals: Diana Price NPC [Primary Care Provider] - 1-2 days Time of Disposition: 01:32
[2022-10-19 23:55] LABS: Albumin 4.2 g/dL (3.5-5.0); Calcium 9.4 mg/dL (8.4-10.2); Magnesium 2.1 mg/dL (1.6-2.3); Potassium 4.4 mmol/L (3.5-5.1); Total Bilirubin 0.5 mg/dL (0.2-1.3); Total Protein 6.8 g/dL (6.3-8.2)
[2022-10-19 23:57] LABS: INR 0.9 (<1.2); Partial Thromboplastin Time 23.4 sec (22.0-30.0); Prothrombin Time 9.6 sec (9.0-12.0)
--- NOTE | 2022-10-20 01:02 | XR ---
EXAMINATION TYPE: XR chest 2V DATE OF EXAM: 10/20/2022 COMPARISON: 10/07/2022 HISTORY: Chest pain TECHNIQUE: 2 views FINDINGS: Heart is normal. Lungs are clear of consolidation. There is a possible 10 mm nodule over th e right lower lobe. There are chest leads. Bony thorax is intact. There are possible small pulmonary nodules over the mid thoracic spine on the lateral view. IMPRESSION: Possible pulmonary nodules. Normal heart size. No change compared to old exam.
[2022-10-20 01:40] VITALS: BP 148/85; PULSE 71; TEMP 98.6
== END 2022-10-20 01:40 | disposition home or self-care (01) ==
LOC: EC 22:25
DX: I10 Essential (primary) hypertension (principal); F17.200 Nicotine dependence, unspecified, uncomplicated; F12.90 Cannabis use, unspecified, uncomplicated; Z79.899 Other long term (current) drug therapy; Z20.822 Contact with and (suspected) exposure to COVID-19
CPT/HCPCS: 36415; 71046; 80053; 83735; 83880; 84484; 85025; 85610; 85730; 87636; 93005; 96360; 96361; 99284

== ENCOUNTER 2023-02-16 19:58 | Emergency (ER) | payer OTHER ==
[2023-02-16 20:19] VITALS: BP 154/87; RESP 18; TEMP 98.3
[2023-02-16] MEDS ORDERED: IPRATROPIUM-ALBUTEROL 3 ML NEB INHALATION STA (21:08)
[2023-02-16 21:22] VITALS: PULSE 92
--- NOTE | 2023-02-16 21:24 | XR ---
EXAMINATION: XR chest 2V: 02/16/2023 8:44 PM CLINICAL INDICATION: sob, upper resp symptoms TECHNIQUE: Departmental protocol COMPARISON: None available. FINDINGS: Lung parenchyma: Overlying soft tissues are prominent. There is silhouetting of the right mid and low er lung zone pulmonary vasculature by ill-defined added opacity which is partially consolidated. Find ings are consistent with a clinical diagnosis of bronchopneumonia. Noted that there is a 1.5 cm rounded opacity on the frontal radiograph laterally over the right lower lung zone. There is likely a calcification as it can be seen on the lateral radiograph over the hear t shadow. Lateral radiograph also shows multifocal other similar densities, though smaller, most like ly healed granulomatous process. The pleural spaces are negative. The cardiac silhouette is not enlarged. The remainder of the mediastinal silhouette is unremarkable. The skeletal structures and soft tissues are negative for acute findings. IMPRESSION: Right mid/lower lung zones partial consolidation. Recommend 6-8 week follow-up PA and lateral chest r adiographs to prove resolution.
== END 2023-02-17 17:26 ==
LOC: EC 19:58 → MERGE 19:58 → EC 02-17 17:26
DX: Z53.9 Procedure and treatment not carried out, unspecified reason (principal)
CPT/HCPCS: 71046; 94640

== ENCOUNTER 2023-02-16 21:43 | Inpatient (IN) | payer OTHER ==
[2023-02-16 22:19] LABS: Albumin 4.4 g/dL (3.5-5.0); Calcium 9.6 mg/dL (8.4-10.2); Magnesium 2.1 mg/dL (1.6-2.3); Potassium 4.3 mmol/L (3.5-5.1); Total Bilirubin 0.5 mg/dL (0.2-1.3); Total Protein 7.3 g/dL (6.3-8.2)
[2023-02-16 22:30] LABS: INR 0.9 (<1.2); Partial Thromboplastin Time 23.2 sec (22.0-30.0); Prothrombin Time 9.8 sec (9.0-12.0)
[2023-02-16] MEDS ORDERED: cefTRIAXone IN SWFI 1,000 MG/10 ML SYRINGE IVP STA (22:33)
[2023-02-16] MEDS ORDERED: AZITHROMYCIN 500 MG in SODIUM CHLORIDE 0.9% 250 ML IVPB STA (22:33)
[2023-02-16 22:39] LABS: Basophils % (A) 0 %; Eosinophils % (A) 1 %; HCT 42.9 % (34.0-46.0); HGB 14.5 gm/dL (11.4-16.0); Lymphocytes # (A) 0.6 k/uL (1.0-4.8); Lymphocytes % (A) 22 %; MCH 29.2 pg (25.0-35.0); MCHC 33.8 g/dL (31.0-37.0); MCV 86.4 fL (80.0-100.0); Mean Platelet Volume 9.1; Monocytes # (A) 0.1 k/uL (0-1.0); Monocytes % (A) 4 %; Neutrophils # (A) 2.1 k/uL (1.3-7.7); Neutrophils % (A) 72 %; Platelet Count 168 k/uL (150-450); RBC 4.97 m/uL (3.80-5.40); RDW 13.3 % (11.5-15.5)
--- NOTE | 2023-02-16 22:54 | ED ---
URI HPI - General Chief Complaint: Upper Respiratory Infection Stated Complaint: SOB Time Seen by Provider: 02/16/23 21:50 Source: patient Mode of arrival: ambulatory Limitations: no limitations - History of Present Illness Initial Comments: Patient is a 57-year-old female presenting with chief complaint of shortness of breath. Patient has had a mildly productive cough for the past few days. She states that today when she woke up she noticed shortness of breath with exertion. Patient was seen at urgent care and was found to have oxygen satur ation of 85% on room air. She was advised to report to the ER. No chest pain or palpitations. No fevers or chills. No lower extremity swelling. No recent travel, recent surgery, or hormone use. No history of blood clots. - Related Data Home Medications Medication Instructions Recorded Confirmed methIMAzole [Tapazole] 7.5 mg PO Q48H 04/27/21 12/02/21 amLODIPine [Norvasc] 2.5 mg PO DAILY 12/02/21 12/02/21 methIMAzole [Tapazole] 5 mg PO Q48H 12/02/21 12/02/21 Previous Rx's Medication Instructions Recorded Famotidine 10 mg PO DAILY 7 Days #7 tab 12/02/21 Mag Hydrox/Al Hydrox/Simeth 30 ml PO BID PRN #300 ml 12/02/21 [Maalox] Allergies Allergy/AdvReac Type Severity Reaction Status Date / Time No Known Allergies Allergy Verified 10/07/22 20:28 Review of Systems ROS Statement: Those systems with pertinent positive or pertinent negative responses have been documented in the HPI. ROS Other: All systems not noted in ROS Statement are negative. Past Medical History Past Medical History: Hypertension, Thyroid Disorder Additional Past Medical History / Comment(s): Hyperthyroid History of Any Multi-Drug Resistant Organisms: None Reported Past Surgical History: Section, Cholecystectomy, Hysterectomy Additional Past Surgical History / Comment(s): colonoscopy-normal Past Anesthesia/Blood Transfusion Reactions: No Reported Reaction Past Psychological History: No Psychological Hx Reported Smoking Status: Current every day smoker Past Alcohol Use History: Rare Past Drug Use History: Marijuana - Past Family History Father Family Medical History: Myocardial Infarction ([place]) Additional Family Medical History / Comment(s): Father had a massive [place] at age 59 yrs Mother Family Medical History: Coronary Artery Disease (CAD), Myocardial Infarction ([place]) Additional Family Medical History / Comment(s): Pt believes mother had a IL. She has had a cardiac stent. She is 71 yrs old. General Exam Limitations: no limitations General appearance: alert, in no apparent distress Head exam: Present: atraumatic, normocephalic, normal inspection Eye exam: Present: normal appearance, EOMI. Absent: scleral icterus, periorbital swelling Neck exam: Present: normal inspection, full ROM Respiratory exam: Present: normal lung sounds bilaterally. Absent: respiratory distress, wheezes, rales, rhonchi, stridor Cardiovascular Exam: Present: regular rate, normal rhythm, normal heart sounds. Absent: systolic murmur, diastolic murmur, rubs, gallop, clicks Neurological exam: Present: alert, oriented X3, CN II-XII intact Psychiatric exam: Present: normal affect, normal mood Skin exam: Present: warm, dry, intact, normal color. Absent: rash Course Vital Signs 02/16/23 02/16/23 02/16/23 22:12 23:00 23:05 Temperature 98.3 F Pulse Rate 109 H 81 Respiratory 18 Rate Blood Pressure 154/87 152/93 O2 Sat by Pulse 91 L 96 95 Oximetry 02/16/23 02/16/23 02/16/23 23:06 23:10 23:25 Temperature Pulse Rate 81 Respiratory 22 Rate Blood Pressure 146/88 O2 Sat by Pulse 92 L 91 L 94 L Oximetry Medical Decision Making - Medical Decision Making Was pt. sent in by a medical professional or institution (, PA, PART TIME FLEXIBLE CLERK, urgent care, hospital, or care home...) When possible be specific @ -[No] Did you speak to anyone other than the patient for history (EMS, parent, family, police, friend...)? What history was obtained from this source @ -[No] Did you review nursing and triage notes (agree or disagree)? Why? @ -[I reviewed and agree with nursing and triage notes] Were old charts reviewed (outside hosp., previous admission, EMS record, old EKG, old radiological studies, urgent care reports/EKG's, care home records)? Report findings @ -[No old charts were reviewed] Differential Diagnosis (chest pain, altered mental status, abdominal pain women, abdominal pain men, vaginal bleeding, weakness, fever, dyspnea, syncope, headache, dizziness, GI bleed, back pain, seizure, CVA, palpatations, mental health, musculoskeletal)? @ -MDM Differential Dyspnea: Coronary syndrome, arrhythmia, tamponade, asthma, COPD, pulmonary embolism, pneumonia, pneumothorax, pulmonary effusion, anaphylaxis, diabetic ketoacidosis, flailed chest, pulmonary contusion, diaphragmatic rupture, anemia, neuromuscul ar this is not meant to be an all-inclusive list. EKG interpreted by me (3pts min.). @ -Sinus rhythm with occasional supraventricular premature complexes. Ve ntricular rate 93. RI interval 150. QRS 98. QT 358. QTC 409. No ischemic changes. X-rays interpreted by me (1pt min.). @ -Chest x-ray shows consolidation in the right mid and lower lung sounds CT interpreted by me (1pt min.). @ -[None done] U/S interpreted by me (1pt. min.). @ -[None done] What testing was considered but not performed or refused? (CT, X-rays, U/S, labs)? Why? @ -[None] What meds were considered but not given or refused? Why? @ -[None] Did you discuss the management of the patient with other professionals (professionals i.e. , PA, PART TIME FLEXIBLE CLERK, lab, RT, psych nurse, social group worker, shrimp pond laborer, teacher, photographic intelligence officer, caser up)? Give summary @ -Discussed details with Dr. Sampson who accepts admission Was smoking cessation discussed for >3mins.? @ -[No] Was critical care preformed (if so, how long)? @ -[No] Were there social determinants of health that impacted care today? How? (Homelessness, low income, unemployed, alcoholism, drug addiction, transportat ion, low edu. Level, literacy, decrease access to med. care, assisted, rehab)? @ -[No] Was there de-escalation of care discussed even if they declined (Discuss DNR or withdrawal of care, Hospice)? DNR status @ -[No] What co-morbidities impacted this encounter? (DM, HTN, Smoking, COPD, CAD, Cancer, CVA, ARF, Chemo, Hep., AIDS, mental health diagnosis, sleep apnea, morbid obesity)? @ -[None] Was patient admitted / discharged? Hospital course, mention meds given and route, prescriptions, significant lab abnormalities, going to OR and other pertinent info. @ -Ended. Patient is a 57-year-old female presenting with chief complaint of shortness of breath on exertion. She has a cough for the past few days. On physical examination patient is hypoxic on room air dropping to the high 80s. Patient is placed on 2 L nasal cannula. Lab work is essentially unremarkable. X-ray shows evidence of pneumonia. Patient was given breathing treatment and treated with a dose of Rocephin and azithromycin. Patient was trialed on room air again and became hypoxic without supplemental O2. She will be admitted. I spoke with Dr. Sampson who accepted admission. Patient is agreeable with this plan. I discussed this case my attending Dr. Moss Undiagnosed new problem with uncertain prognosis? @ -[No] Drug Therapy requiring intensive monitoring for toxicity (Heparin, Nitro, Insulin, Cardizem)? @ -[No] Were any procedures done? @ -[No] Diagnosis/symptom? @ -Hypoxic respiratory failure with pneumonia Acute, or Chronic, or Acute on Chronic? @ -Acute Uncomplicated (without systemic symptoms) or Complicated (systemic symptoms)? @ -Complicated Side effects of treatment? @ -[No] Exacerbation, Progression, or Severe Exacerbation? @ -[No] Poses a threat to life or bodily function? How? (Chest pain, [place], [place], pneumonia, PE, COPD, DKA, ARF, appy, cholecystitis, CVA, Diverticulitis, Homicidal, Suicidal, threat to staff... and all critical care pts) @ -yes - Lab Data Result diagrams: 02/16/23 21:43 02/16/23 21:43 Lab Results 02/16/23 02/16/23 02/16/23 Range/Units 21:43 21:43 21:43 WBC 3.0 L (3.8-10.6) k/uL RBC 4.97 (3.80-5.40) m/uL Hgb 14.5 (11.4-16.0) gm/dL Hct 42.9 (34.0-46.0) % MCV 86.4 (80.0-100.0) fL MCH 29.2 (25.0-35.0) pg MCHC 33.8 (31.0-37.0) g/dL RDW 13.3 (11.5-15.5) % Plt Count 168 (150-450) k/uL MPV 9.1 Neutrophils % 72 % Lymphocytes % 22 % Monocytes % 4 % Eosinophils % 1 % Basophils % 0 % Neutrophils # 2.1 (1.3-7.7) k/uL Lymphocytes # 0.6 L (1.0-4.8) k/uL Monocytes # 0.1 (0-1.0) k/uL Eosinophils # 0.0 (0-0.7) k/uL Basophils # 0.0 (0-0.2) k/uL PT 9.8 (9.0-12.0) sec INR 0.9 (<1.2) APTT 23.2 (22.0-30.0) sec D-Dimer 0.36 (<0.60) mg/L FEU Sodium 138 (137-145) mmol/L Potassium 4.3 (3.5-5.1) mmol/L Chloride 101 (98-107) mmol/L Carbon Dioxide 25 (22-30) mmol/L Anion Gap 12 mmol/L BUN 15 (7-17) mg/dL Creatinine 0.88 (0.52-1.04) mg/dL Est GFR (CKD-EPI)AfAm 86 (>60 ml/min/1.73 sqM) Est GFR (CKD-EPI)NonAf 74 (>60 ml/min/1.73 sqM) Glucose 158 H (74-99) mg/dL Plasma Lactic Acid Jose (0.7-2.0) mmol/L Calcium 9.6 (8.4-10.2) mg/dL Magnesium 2.1 (1.6-2.3) mg/dL Total Bilirubin 0.5 (0.2-1.3) mg/dL AST 24 (14-36) U/L ALT 28 (4-34) U/L Alkaline Phosphatase 86 (38-126) U/L Troponin I (0.000-0.034) ng/mL NT-Pro-B Natriuret Pep pg/mL Total Protein 7.3 (6.3-8.2) g/dL Albumin 4.4 (3.5-5.0) g/dL Influenza Type A (PCR) (Not Detectd) Influenza Type B (PCR) (Not Detectd) RSV (PCR) (Not Detectd) SARS-CoV-2 (PCR) (Not Detectd) 02/16/23 02/16/23 02/16/23 Range/Units 21:43 21:43 21:43 WBC (3.8-10.6) k/uL RBC (3.80-5.40) m/uL Hgb (11.4-16.0) gm/dL Hct (34.0-46.0) % MCV (80.0-100.0) fL MCH (25.0-35.0) pg MCHC (31.0-37.0) g/dL RDW (11.5-15.5) % Plt Count (150-450) k/uL MPV Neutrophils % % Lymphocytes % % Monocytes % % Eosinophils % % Basophils % % Neutrophils # (1.3-7.7) k/uL Lymphocytes # (1.0-4.8) k/uL Monocytes # (0-1.0) k/uL Eosinophils # (0-0.7) k/uL Basophils # (0-0.2) k/uL PT (9.0-12.0) sec INR (<1.2) APTT (22.0-30.0) sec D-Dimer (<0.60) mg/L FEU Sodium (137-145) mmol/L Potassium (3.5-5.1) mmol/L Chloride (98-107) mmol/L Carbon Dioxide (22-30) mmol/L Anion Gap mmol/L BUN (7-17) mg/dL Creatinine (0.52-1.04) mg/dL Est GFR (CKD-EPI)AfAm (>60 ml/min/1.73 sqM) Est GFR (CKD-EPI)NonAf (>60 ml/min/1.73 sqM) Glucose (74-99) mg/dL Plasma Lactic Acid Jose 1.0 (0.7-2.0) mmol/L Calcium (8.4-10.2) mg/dL Magnesium (1.6-2.3) mg/dL Total Bilirubin (0.2-1.3) mg/dL AST (14-36) U/L ALT (4-34) U/L Alkaline Phosphatase (38-126) U/L Troponin I <0.012 (0.000-0.034) ng/mL NT-Pro-B Natriuret Pep 194 pg/mL Total Protein (6.3-8.2) g/dL Albumin (3.5-5.0) g/dL Influenza Type A (PCR) (Not Detectd) Influenza Type B (PCR) (Not Detectd) RSV (PCR) (Not Detectd) SARS-CoV-2 (PCR) (Not Detectd) 02/16/23 Range/Units 21:43 WBC (3.8-10.6) k/uL RBC (3.80-5.40) m/uL Hgb (11.4-16.0) gm/dL Hct (34.0-46.0) % MCV (80.0-100.0) fL MCH (25.0-35.0) pg MCHC (31.0-37.0) g/dL RDW (11.5-15.5) % Plt Count (150-450) k/uL MPV Neutrophils % % Lymphocytes % % Monocytes % % Eosinophils % % Basophils % % Neutrophils # (1.3-7.7) k/uL Lymphocytes # (1.0-4.8) k/uL Monocytes # (0-1.0) k/uL Eosinophils # (0-0.7) k/uL Basophils # (0-0.2) k/uL PT (9.0-12.0) sec INR (<1.2) APTT (22.0-30.0) sec D-Dimer (<0.60) mg/L FEU Sodium (137-145) mmol/L Potassium (3.5-5.1) mmol/L Chloride (98-107) mmol/L Carbon Dioxide (22-30) mmol/L Anion Gap mmol/L BUN (7-17) mg/dL Creatinine (0.52-1.04) mg/dL Est GFR (CKD-EPI)AfAm (>60 ml/min/1.73 sqM) Est GFR (CKD-EPI)NonAf (>60 ml/min/1.73 sqM) Glucose (74-99) mg/dL Plasma Lactic Acid Jose (0.7-2.0) mmol/L Calcium (8.4-10.2) mg/dL Magnesium (1.6-2.3) mg/dL Total Bilirubin (0.2-1.3) mg/dL AST (14-36) U/L ALT (4-34) U/L Alkaline Phosphatase (38-126) U/L Troponin I (0.000-0.034) ng/mL NT-Pro-B Natriuret Pep pg/mL Total Protein (6.3-8.2) g/dL Albumin (3.5-5.0) g/dL Influenza Type A (PCR) Not Detected (Not Detectd) Influenza Type B (PCR) Not Detected (Not Detectd) RSV (PCR) Not Detected (Not Detectd) SARS-CoV-2 (PCR) Not Detected (Not Detectd) Disposition Clinical Impression: Respiratory failure with hypoxia, Pneumonia Disposition: ADMITTED IP TO THIS HOSP Condition: Fair Time of Disposition: 23:34
[2023-02-16] MEDS ORDERED: NALOXONE 0.4 MG/ML 1 ML VIAL IV PRN (23:31)
--- NOTE | 2023-02-17 02:27 | P.HPIM ---
History of Present Illness H&P Date: 02/16/23 The patient is a 57-year-old female with a PMH of hypertension who presents to the emergency room with complaints of shortness of breath and cough productive of yellow-green phlegm. Patient reports that she's been experiencing above symptoms for the past roughly 1 week. Reports that her shortness of breath gradually worsened and that she is now feeling winded with minimal exertion and is unable to perform her ADLs. She denied experiencing chest discomfort, lower extremity swelling, lower extremity pain. Also denied nausea, vomiting, abdominal pain, diarrhea. The patient underwent an extensive evaluation in the emergency room. CXR revealed right middle and lower lobes partial consolidation (performed under wrong name, charts will be merged in am). EKG revealed sinus rhythm with PVCs a nd 93 bpm with a left anterior fascicular block. Laboratory evaluation was remarkable for leukopenia of 3.0 with troponin less than 0.012, proBNP 194, glucose 158, lactic acid 1.0. Upon arrival at the emergency room, the patient had and SpO2 91% on room air, BP 154/87, pulse 109, temp 98.2F. The patient's SpO2 was again noted to be in the high 80s with minimal ambulation. ED documentation reviewed and case discussed with ED provider. Review of systems: Pertinent positives and negatives as discussed in HPI, a complete review of systems was performed and all other systems are negative. Physical examination: Vital signs reviewed General: non toxic, no distress, appears at stated age, normal weight Derm: no unusual rashes/lesions, warm Head: atraumatic, normocephalic, symmetric Eyes: EOMI, no lid lag, anicteric sclera, pupils equal round reactive to light ENT: Nose and ears atraumatic Neck: No cervical lymphadenopathy, trachea midline, supple Mouth: no lip lesion, mucus membranes moist Cardiovascular: S1S2 reg, no murmur, positive dorsalis pedis pulse bilateral, no edema Lungs: Scattered bilateral coarse breath sounds noted, no wheezing appreciated, no accessory muscle use Abdominal: soft, nontender to palpation, no guarding Ext: muscle strength 5 out of 5 in all 4 extremities grossly, no gross muscle atrophy, no contractures, Neuro: CN II-XI grossly intact, no gross focal neuro deficits Psych: Alert, oriented, appropriate affect Assessment: Acute hypoxic respiratory failure secondary to community acquired pneumonia Chronic conditions: Hypertension Imaging: CXR revealed right middle and lower lobes partial consolidation (performed under wrong name, charts will be merged in am). EKG revealed sinus rhythm with PVCs and 93 bpm with a left anterior fascicular block. Data Review: Laboratory evaluation was remarkable for leukopenia of 3.0 with troponin less than 0.012, proBNP 194, glucose 158, lactic acid 1.0. Upon arrival at the emergency room, the patient had and SpO2 91% on room air, BP 154/87, pulse 109, temp 98.2F. Plan: Continue with azithromycin and ceftriaxone 1 g IV daily Supplement oxygen DVT prophylaxis: Heparin subq The patient is admitted with an anticipated less than 2 midnight stay for evaluation of community acquired pneumonia CODE STATUS: Full Code Discussed with: Patient Anticipated discharge place: Home Past Medical History Past Medical History: Hypertension, Thyroid Disorder Additional Past Medical History / Comment(s): Hyperthyroid History of Any Multi-Drug Resistant Organisms: None Reported Past Surgical History: Section, Cholecystectomy, Hysterectomy Additional Past Surgical History / Comment(s): colonoscopy-normal Past Anesthesia/Blood Transfusion Reactions: No Reported Reaction Past Psychological History: No Psychological Hx Reported Smoking Status: Current every day smoker Past Alcohol Use History: Rare Past Drug Use History: Marijuana - Past Family History Father Family Medical History: Myocardial Infarction ([place]) Additional Family Medical History / Comment(s): Father had a massive [place] at age 59 yrs Mother Family Medical History: Coronary Artery Disease (CAD), Myocardial Infarction (VT) Additional Family Medical History / Comment(s): Pt believes mother had a VT. She has had a cardiac stent. She is 71 yrs old. Medications and Allergies Home Medications Medication Instructions Recorded Confirmed Type methIMAzole [Tapazole] 7.5 mg PO Q48H 04/27/21 12/02/21 History Famotidine 10 mg PO DAILY 7 Days #7 tab 12/02/21 Rx Mag Hydrox/Al Hydrox/Simeth 30 ml PO BID PRN #300 ml 12/02/21 Rx [Maalox] amLODIPine [Norvasc] 2.5 mg PO DAILY 12/02/21 12/02/21 History methIMAzole [Tapazole] 5 mg PO Q48H 12/02/21 12/02/21 History Allergies Allergy/AdvReac Type Severity Reaction Status Date / Time No Known Allergies Allergy Verified 10/07/22 20:28 Physical Exam Vitals: Vital Signs Temp Pulse Resp BP Pulse Ox 02/16/23 23:25 94 L 02/16/23 23:10 81 22 146/88 91 L 02/16/23 23:06 92 L 02/16/23 23:05 95 02/16/23 23:00 81 152/93 96 02/16/23 22:12 98.3 F 109 H 18 154/87 91 L Intake and Output 02/16/23 02/16/23 02/17/23 14:59 22:59 06:59 Other: Weight 127.006 kg Results CBC & Chem 7: 02/16/23 21:43 02/16/23 21:43 Labs: Abnormal Lab Results - Last 24 Hours (Table) 02/16/23 02/16/23 Range/Units 21:43 21:43 WBC 3.0 L (3.8-10.6) k/uL Lymphocytes # 0.6 L (1.0-4.8) k/uL Glucose 158 H (74-99) mg/dL
--- NOTE | 2023-02-17 09:46 | P.PN ---
Subjective Progress Note Date: 02/17/23 Hospital course: Patient is a very pleasant 57 showed female with a past medical history of hypertension. She presented to the emergency department with a chief complaint of shortness of breath and productive cough 1 week. She underwent full evaluation in the emergency department. CBC revealing leukopenia with WBC count of 3.0. Coagulation profile unremarkable. D-dimer negative at 0.36. BMP unremarkable. Liver enzymes normal findings. Troponin less than 0.012, proBNP 194. Influenza A, influenza B, RSV, and Covid PCR were all negative. EKG was completed showing normal sinus rhythm at 93 bpm with no noted T-wave or ST abnormalities upon personal review and interpretation. Unable to personally review x-ray at this time as imaging was performed under wrong name and awaiting charts to be merged. However per documentation in chart chest x-ray did reveal right middle and lower lobe partial consolidation. Patient was admitted under our services at this time. Physical exam: Vital signs reviewed and stable. General: Nontoxic, no distress and appears stated age. Derm: Skin warm and dry, normal coloration for ethnicity. Head: Atraumatic, normocephalic and symmetric. Eyes: EOMs intact, no lid lag, and anicteric sclera Mouth: no lip lesions, mucus membranes moist Cardiovascular: regular rate and rhythm with normal S1S2, no murmur, positive posterior tibial pulses bilaterally, and cap refill < 2 seconds. Lungs: Respirations even, regular, and unlabored on room air. Lungs with diffuse rhonchi bilaterally and soft expiratory wheezes. No accessory muscle usage. Abdominal: soft, nontender to palpation, no guarding, no appreciable organomegaly Ext: ROM intact. No gross muscle atrophy, no edema, no contractures Neuro: Speech clear, face symmetrical and CN II-XII grossly intact with no noted focal neuro deficits Psych: Alert and oriented to person, place, time, and situation. Appropriate and pleasant affect. Assessment and Plan of Care: Right upper and lower lobe pneumonia Acute hypoxic respiratory failure secondary to community-acquired pneumonia Hypertension -Continue IV antibiotics with Rocephin 1 g every 24 hours and azithromycin 500 mg every 24 hours day 2 of 5 for antibiotics -Reviewed labs in chart. CBC revealing leukopenia with WBC count of 3.0. Coagulation profile unremarkable. D-dimer negative at 0.36. BMP unremarkable. Liver enzymes normal findings. Troponin less than 0.012, proBNP 194. -Influenza A, influenza B, RSV, and Covid PCR were all negative. -EKG was completed showing normal sinus rhythm at 93 bpm with no noted T-wave or ST abnormalities upon personal review and interpretation. -Unable to personally review x-ray at this time as imaging was performed under wrong name and awaiting charts to be merged. However per documentation in chart chest x-ray did reveal right middle and lower lobe partial consolidation. -Order placed for prednisone 40 mg daily. -Order placed for scheduled DuoNeb treatments every 4 hours. CODE STATUS: Full code DVT prophylaxis: Lovenox Discussed with: Patient and RN Anticipated discharge date: Likely tomorrow morning Anticipated discharge place: Home Patient was seen independently by Nurse Pracitioner. This document was prepared using [employer] dictation software. Please allow for errors in ion exchange operator, while rare they do occur. I reviewed the documentation as provided by the JOSTIN above, who is the original author of this note. I agree with the documented assessment and plan, with the following changes: none Objective - Vital Signs Vital signs: Vital Signs Temp 97.7 F 02/17/23 09:18 Pulse 73 02/17/23 09:18 Resp 16 02/17/23 09:18 BP 147/86 02/17/23 09:18 Pulse Ox 97 02/17/23 09:18 FiO2 Intake & Output 02/16/23 02/17/23 02/17/23 18:59 06:59 18:59 Weight 127.006 kg - Labs CBC & Chem 7: 02/18/23 08:30 02/18/23 08:30 Labs: Abnormal Lab Results - Last 24 Hours (Table) 02/16/23 02/16/23 Range/Units 21:43 21:43 WBC 3.0 L (3.8-10.6) k/uL Lymphocytes # 0.6 L (1.0-4.8) k/uL Glucose 158 H (74-99) mg/dL
[2023-02-17] MEDS: HEPARIN SODIUM,PORCINE/PF 5,000 UNIT/0.5 ML SYRINGE SQ SCH ×3 (11:06→23:49)
[2023-02-17] MEDS: AZITHROMYCIN 250 MG TAB PO SCH (11:07)
[2023-02-17] MEDS: predniSONE 20 MG TAB PO SCH (16:46)
[2023-02-17] MEDS: LEVOTHYROXINE 75 MCG TAB PO SCH (16:46)
[2023-02-17] MEDS ORDERED: IPRATROPIUM-ALBUTEROL 3 ML NEB INHALATION PRN (19:55)
[2023-02-17] MEDS ORDERED: IPRATROPIUM-ALBUTEROL 3 ML NEB INHALATION SCH (20:00)
[2023-02-17] MEDS: IPRATROPIUM-ALBUTEROL 3 ML NEB INHALATION SCH (20:21)
[2023-02-18] MEDS: LEVOTHYROXINE 75 MCG TAB PO SCH (06:23)
[2023-02-18] MEDS ORDERED: LEVOTHYROXINE 75 MCG TAB PO SCH (06:30)
[2023-02-18] MEDS: IPRATROPIUM-ALBUTEROL 3 ML NEB INHALATION SCH ×4 (08:49→20:53)
[2023-02-18] MEDS: AZITHROMYCIN 250 MG TAB PO SCH (09:03)
[2023-02-18] MEDS: predniSONE 20 MG TAB PO SCH (09:04)
[2023-02-18] MEDS: ENOXAPARIN 40 MG/0.4 ML SYRINGE SQ SCH (09:04)
[2023-02-18] MEDS: PANTOPRAZOLE 40 MG TABLET PO SCH (09:04)
[2023-02-18 09:29] LABS: HCT 42.8 % (34.0-46.0); HGB 14.3 gm/dL (11.4-16.0); MCH 29.1 pg (25.0-35.0); MCHC 33.4 g/dL (31.0-37.0); MCV 87.1 fL (80.0-100.0); Mean Platelet Volume 9.3; Platelet Count 187 k/uL (150-450); RBC 4.91 m/uL (3.80-5.40); RDW 13.3 % (11.5-15.5); WBC 4.6 k/uL (3.8-10.6)
[2023-02-18 09:40] LABS: African American GFR (CKD) 86 (>60 ml/min/1.73 sqM); Anion Gap 9 mmol/L; Blood Urea Nitrogen 17 mg/dL (7-17); Calcium 9.6 mg/dL (8.4-10.2); Carbon Dioxide 30 mmol/L (22-30); Chloride 103 mmol/L (98-107); Glucose 110 mg/dL (74-99); Non-African American GFR(CKD) 74 (>60 ml/min/1.73 sqM); Potassium 4.7 mmol/L (3.5-5.1); Sodium 142 mmol/L (137-145)
--- NOTE | 2023-02-18 11:35 | P.CNPUL ---
History of Present Illness Consult date: 02/18/23 Requesting physician: Rekha Sampson Reason for consult: pneumonia Chief complaint: Cough and shortness of breath and fever History of present illness: This is a 57-year-old female, [id number] smoking history, known history of hypertension and hypothyroidism, continues to smoke on the average of one half pack per day. Patient was seen recently in the walk-in clinic with 1 week history of cough, fever, cough is productive with greenish phlegm, shortness of breath with any activity, patient was noted to be hypoxic in the urgent care clinic, and she was advised to go to ER. Seen in the ER on the of this month, chest x-ray showed significant consolidation involving mostly the right lower lobe, and to some extent the right middle lobe patient was admitted, started on antibiotics for presumptive acute QT acquired pneumonia, and this consult was initiated. Patient denies any chest pain, denies any nausea vomiting abdominal pain melena or hematemesis, denies any hemoptysis. Patient tells me that she is actually feeling better today compared to how she felt when she came in. Patient has been on Rocephin and Zithromax for her pneumonia all along. Review of Systems GEN.: Low-grade fever, chills, no weight loss HEENT: Negative. RESPIRATORY: Cough and shortness of breath CARDIOVASCULAR: Negative GASTROINTESTINAL: Denies nausea vomiting abdominal pain melena or hematemesis GENITOURINARY: Negative MUSCULOSKELETAL: Negative HEMATOLOGICAL: No clotting bleeding or bruising PSYCHIATRY: Negative NEUROLOGICAL: Negative Past Medical History Past Medical History: Hypertension, Thyroid Disorder Additional Past Medical History / Comment(s): Hyperthyroid History of Any Multi-Drug Resistant Organisms: None Reported Past Surgical History: Section, Cholecystectomy, Hysterectomy Additional Past Surgical History / Comment(s): colonoscopy-normal Past Anesthesia/Blood Transfusion Reactions: No Reported Reaction Past Psychological History: No Psychological Hx Reported Smoking Status: Current every day smoker Past Alcohol Use History: Rare Past Drug Use History: Marijuana - Past Family History Father Family Medical History: Myocardial Infarction (ID) Additional Family Medical History / Comment(s): Father had a massive ID at age 59 yrs Mother Family Medical History: Coronary Artery Disease (CAD), Myocardial Infarction (ID) Additional Family Medical History / Comment(s): Pt believes mother had a ID. She has had a cardiac stent. She is 71 yrs old. Medications and Allergies Home Medications Medication Instructions Recorded Confirmed Type Levothyroxine Sodium [Synthroid] 150 mcg PO DAILY 02/17/23 02/17/23 History Omeprazole 40 mg PO DAILY 02/17/23 02/17/23 History amLODIPine [Norvasc] 5 mg PO DAILY@1430 02/17/23 02/17/23 History Allergies Allergy/AdvReac Type Severity Reaction Status Date / Time No Known Allergies Allergy Verified 02/17/23 08:10 Physical Exam Vitals: Vital Signs Temp Pulse Pulse Resp BP Pulse Ox 02/18/23 09:02 78 02/18/23 08:50 76 02/18/23 08:00 73 16 02/18/23 07:50 98.0 F 73 16 162/96 92 L 02/18/23 04:24 98.0 F 83 16 147/93 90 L 02/17/23 20:00 78 02/17/23 19:53 79 02/17/23 19:21 98.1 F 77 16 149/81 91 L 02/17/23 18:11 93 L 02/17/23 15:00 97.6 F 79 16 145/68 97 Intake and Output 02/17/23 02/18/23 02/18/23 22:59 06:59 14:59 Intake Total 50 240 Balance 50 240 Intake: Oral 50 240 Other: Voiding Method Toilet # Voids 1 1 Physical Exam: Revealed 57-year-old female obese, pleasant, in no distress, on 2 L nasal cannula with O2 sat showed 92%. Head: Atraumatic, normocephalic. HEENT:[Neck is supple.] [No neck masses.] [No thyromegaly.] [No JVD.] Chest: [Bronchial breath sounds noted the right base, otherwise unremarkable, no rhonchi and no wheezes. No chest wall tenderness. Cardiac Exam: [Normal S1 and S2, no S3 gallop, no murmur.] Abdomen: [Obese, Soft, nontender, no megaly, no rebound, no guarding, normal bowel sounds.] Extremities: [No clubbing, no edema, no cyanosis.] Neurological Exam: [No focal neurologic deficit.] Alert and oriented 3 focal deficits. Psychiatric: Normal mood affect and normal mental status examination. Skin: No rashes. Musculoskeletal: No deformities and no limitation in range of motion Results - Laboratory Findings CBC and BMP: 02/18/23 08:30 02/18/23 08:30 PT/INR, D-dimer PT 9.8 sec (9.0-12.0) 02/16/23 21:43 INR 0.9 (<1.2) 02/16/23 21:43 D-Dimer 0.36 mg/L FEU (<0.60) 02/16/23 21:43 Abnormal lab findings: Abnormal Labs 02/16/23 02/16/23 02/18/23 21:43 21:43 08:30 WBC 3.0 L Lymphocytes # 0.6 L Glucose 158 H 110 H - Diagnostic Findings Chest x-ray: image reviewed (As noted in HPI) Assessment and Plan Assessment: Impression: Acute hypoxic respiratory failure secondary to acute community-acquired pneu monia, and acute exacerbation of COPD Acute exacerbation of presumptive COPD Benign essential hypertension, on treatment. Tobacco dependence syndrome History of hypothyroidism on replacement therapy Recommendation: Agree with the present treatment plan including Rocephin and Zithromax Counseled regarding smoking cessation Continue oxygen and titrate accordingly Continue GI and DVT prophylaxis Continue bronchodilators Prednisone burst and taper Possible discharge planning in the next 24-48 hours Outpatient follow-up and repeat chest x-ray in one week Time with Patient: Greater than 30
[2023-02-18] MEDS: methylPREDNISolone SOD SUCCI 40 MG/ML 1 ML VIAL IV SCH ×2 (12:24→20:46)
[2023-02-18] MEDS: amLODIPine 5 MG TAB PO SCH (16:08)
--- NOTE | 2023-02-18 17:21 | P.PN ---
Subjective Progress Note Date: 02/18/23 Hospital course: Patient is a very pleasant 57 showed female with a past medical history of hypertension and nicotine dependence. She presented to the emergency department with a chief complaint of shortness of breath and productive cough 1 week. She underwent full evaluation in the emergency department. CBC revealing leukopenia with WBC count of 3.0. Coagulation profile unremarkable. D-dimer negative at 0.36. BMP unremarkable. Liver enzymes normal findings. Troponin less than 0.012, proBNP 194. Influenza A, influenza B, RSV, and Covid PCR were all negative. EKG was completed showing normal sinus rhythm at 93 bpm with no noted T-wave or ST abnormalities upon personal review and interpretation. Unable to personally review x-ray at this time as imaging was performed under wrong name and awaiting charts to be merged. However per documentation in chart chest x-ray did reveal right middle and lower lobe partial consolidation. Patient was admitted under our services at this time. Patient has been receiving steroids, breathing treatments, and antibiotics. Patient continues to require oxygen supplementation and per RN the patient desaturating down to 86% on room air this morning while at rest and maintained at 86%. Oral prednisone discontinued and patient started on Solu-Medrol 40 mg twice a day. Consult placed to hand sewer shoes as there is likely underlying undiagnosed COPD with patient's long-standing history of nicotine dependence in addition to current community- acquired pneumonia. Physical exam: Patient continues to require oxygen supplementation and per RN the patient desaturating down to 86% on room air this morning while at rest and maintained at 86%. Patient reports continued shortness of breath and cough at rest and worsening with ambulation. Patient has remained afebrile since admission. Patient transferred from observation to inpatient secondary to continued need for oxygen and hypoxic at rest. Patient may need discharged home on oxygen. Vital signs reviewed and stable. General: Nontoxic, no distress and appears stated age. Derm: Skin warm and dry, normal coloration for ethnicity. Head: Atraumatic, normocephalic and symmetric. Eyes: EOMs intact, no lid lag, and anicteric sclera Mouth: no lip lesions, mucus membranes moist Cardiovascular: regular rate and rhythm with normal S1S2, no murmur, positive posterior tibial pulses bilaterally, and cap refill < 2 seconds. Lungs: Respirations even, regular, and unlabored on room air. Lungs with diffuse rhonchi bilaterally and soft expiratory wheezes. No accessory muscle usage. Abdominal: soft, nontender to palpation, no guarding, no appreciable organomegaly Ext: ROM intact. No gross muscle atrophy, no edema, no contractures Neuro: Speech clear, face symmetrical and CN II-XII grossly intact with no noted focal neuro deficits Psych: Alert and oriented to person, place, time, and situation. Appropriate and pleasant affect. Assessment and Plan of Care: Right upper and lower lobe pneumonia Acute hypoxic respiratory failure secondary to community-acquired pneumonia and presumed COPD exacerbation Likely acute COPD exacerbation, patient reports long-standing history of nicotine dependence with no previous diagnosis of COPD Hypertension Nicotine dependence -Continue IV antibiotics with Rocephin 1 g every 24 hours and azithromycin 500 mg every 24 hours day 3 of 5 for antibiotics -Reviewed labs in chart. CBC and BMP were unremarkable. -Influenza A, influenza B, RSV, and Covid PCR were all negative. -EKG was completed showing normal sinus rhythm at 93 bpm with no noted T-wave or ST abnormalities upon personal review and interpretation. -Unable to personally review x-ray at this time as imaging was performed under wrong name and awaiting charts to be merged. However per documentation in chart chest x-ray did reveal right middle and lower lobe partial consolidation. -Oral prednisone discontinued and patient started on Solu-Medrol 40 mg twice a day. -Consult placed to hand sewer shoes as there is likely underlying undiagnosed COPD with patient's long-standing history of nicotine dependence in addition to current community-acquired pneumonia. -Continue scheduled DuoNeb treatments 4 times daily and as needed for shortness of breath and/or wheezing. -Recommend smoking cessation. CODE STATUS: Full code DVT prophylaxis: Lovenox Discussed with: Patient and RN Anticipated discharge date: Likely tomorrow morning Anticipated discharge place: Home Patient was seen independently by Nurse Pracitioner. This document was prepared using [employer] dictation software. Please allow for errors in floor layer tile, while rare they do occur. I reviewed the documentation as provided by the JOSTIN above, who is the original author of this note. I agree with the documented assessment and plan, with the following changes: none Objective - Vital Signs Vital signs: Vital Signs Temp 98.0 F 02/18/23 04:24 Pulse 83 02/18/23 04:24 Resp 16 02/18/23 04:24 BP 147/93 02/18/23 04:24 Pulse Ox 90 L 02/18/23 04:24 FiO2 Intake & Output 02/17/23 02/18/23 02/18/23 18:59 06:59 18:59 Intake Total 168 Balance 168 Intake: Oral 168 Other: # Voids 1 1 - Labs CBC & Chem 7: 02/18/23 08:30 02/18/23 08:30
[2023-02-19] MEDS: LEVOTHYROXINE 75 MCG TAB PO SCH (06:25)
[2023-02-19] MEDS: methylPREDNISolone SOD SUCCI 40 MG/ML 1 ML VIAL IV SCH ×2 (08:20→21:23)
[2023-02-19] MEDS: PANTOPRAZOLE 40 MG TABLET PO SCH (08:21)
[2023-02-19] MEDS: ENOXAPARIN 40 MG/0.4 ML SYRINGE SQ SCH (08:21)
[2023-02-19] MEDS: AZITHROMYCIN 250 MG TAB PO SCH (08:26)
[2023-02-19] MEDS: IPRATROPIUM-ALBUTEROL 3 ML NEB INHALATION SCH ×4 (08:58→20:30)
--- NOTE | 2023-02-19 10:38 | P.PN ---
Subjective Progress Note Date: 02/19/23 This is a 57-year-old female, [id number] smoking history, known history of hypertension and hypothyroidism, continues to smoke on the average of one half pack per day. Patient was seen recently in the walk-in clinic with 1 week history of cough, fever, cough is productive with greenish phlegm, shortness of breath with any activity, patient was noted to be hypoxic in the urgent care clinic, and she was advised to go to ER. Seen in the ER on the of this month, chest x-ray showed significant consolidation involving mostly the right lower lobe, and to some extent the right middle lobe patient was admitted, started on antibiotics for presumptive acute QT acquired pneumonia, and this consult was initiated. Patient denies any chest pain, denies any nausea vomiting abdominal pain melena or hematemesis, denies any hemoptysis. Patient tells me that she is actually feeling better today compared to how she felt when she came in. Patient has been on Rocephin and Zithromax for her pneumonia all along. The patient is seen today 02/19/2023 in follow-up on the regular medical floor. She is currently sitting up in bed. Feeling better today. She is still with some loose congested cough. Maintaining good O2 saturations in the 90s on 2 L/m per nasal cannula. No new labs today. She is continued on DuoNeb inhalations, IV Solu-Medrol, antibiotics in the form of ceftriaxone. Lovenox for DVT prophylaxis. Objective - Vital Signs Vital signs: Vital Signs Temp 98.2 F 02/19/23 07:00 Pulse 76 02/19/23 09:11 Resp 16 02/19/23 08:00 BP 159/94 02/19/23 07:00 Pulse Ox 94 L 02/19/23 09:00 FiO2 Intake & Output 02/18/23 02/19/23 02/19/23 18:59 06:59 18:59 Intake Total 838 Balance 838 Intake: Oral 838 Other: Voiding Method Toilet Toilet # Voids 3 2 - Exam GENERAL EXAM: Alert, active, pleasant 57-year-old female, on 2 L nasal cannula, comfortable in no apparent distress. HEAD: Normocephalic. EYES: Normal reaction of pupils, equal size. NOSE: Clear with pink turbinates. THROAT: No erythema or exudates. NECK: No masses, no JVD. CHEST: No chest wall deformity. LUNGS: Equal air entry with few scattered rhonchi in the right lung. CVS: S1 and S2 normal with no audible murmur, regular rhythm. ABDOMEN: No hepatosplenomegaly, normal bowel sounds, no guarding or rigidity. SPINE: No scoliosis or deformity SKIN: No rashes CENTRAL NERVOUS SYSTEM: No focal deficits, tone is normal in all 4 extremities. EXTREMITIES: There is no peripheral edema. No clubbing, no cyanosis. Peripheral pulses are intact. - Labs CBC & Chem 7: 02/18/23 08:30 02/18/23 08:30 Assessment and Plan Assessment: Acute hypoxic respiratory failure secondary to acute community-acquired pneumonia, and acute exacerbation of COPD Acute exacerbation of presumptive COPD Benign essential hypertension, on treatment. Tobacco dependence syndrome History of hypothyroidism on replacement therapy Plan: The patient was seen and evaluated Medications reviewed Remains on ceftriaxone Completed azithromycin Continued on bronchodilators, steroids Titrate down the FiO2 as tolerated Follow-up chest x-ray in the a.m. Probable discharge in the a.m. We'll continue to follow I have personally seen and examined the patient, performed the documentation and the assessment and plan as written. Number of minutes spent on the visit: 10.
--- NOTE | 2023-02-19 14:28 | P.PN ---
Subjective Progress Note Date: 02/19/23 Hospital course: Patient is a very pleasant 57 showed female with a past medical history of hypertension and nicotine dependence. She presented to the emergency department with a chief complaint of shortness of breath and productive cough 1 week. She underwent full evaluation in the emergency department. CBC revealing leukopenia with WBC count of 3.0. Coagulation profile unremarkable. D-dimer negative at 0.36. BMP unremarkable. Liver enzymes normal findings. Troponin less than 0.012, proBNP 194. Influenza A, influenza B, RSV, and Covid PCR were all negative. EKG was completed showing normal sinus rhythm at 93 bpm with no noted T-wave or ST abnormalities upon personal review and interpretation. Unable to personally review x-ray at this time as imaging was performed under wrong name and awaiting charts to be merged. However per documentation in chart chest x-ray did reveal right middle and lower lobe partial consolidation. Patient was admitted under our services at this time. Patient has been receiving steroids, breathing treatments, and antibiotics. Patient continues to require oxygen supplementation and per RN the patient desaturating down to 86% on room air this morning while at rest and maintained at 86%. Oral prednisone discontinued and patient started on Solu-Medrol 40 mg twice a day. Consult placed to hvac lead as there is likely underlying undiagnosed COPD with patient's long-standing history of nicotine dependence in addition to current community- acquired pneumonia. Physical exam: Patient continues to require oxygen supplementation and per RN patient continues to desaturate on room air down to 80s. Patient remains on IV steroids with a Medrol, and has been receiving duo nebs 4 times daily and as needed. Patient is nearly complete with antibiotic treatment and will likely need to be discharged home on oxygen secondary to her COPD. Patient reports continued mild shortness of breath but denies having any chest pain, palpitations, or experiencing any numbness/tingling/weakness/swelling in her extremities. Vital signs reviewed and stable. General: Nontoxic, no distress and appears stated age. Derm: Skin warm and dry, normal coloration for ethnicity. Head: Atraumatic, normocephalic and symmetric. Eyes: EOMs intact, no lid lag, and anicteric sclera Mouth: no lip lesions, mucus membranes moist Cardiovascular: regular rate and rhythm with normal S1S2, no murmur, positive posterior tibial pulses bilaterally, and cap refill < 2 seconds. Lungs: Respirations even, regular, and unlabored on room air. Lungs diminished with soft expiratory wheezes. No accessory muscle usage. Abdominal: soft, nontender to palpation, no guarding, no appreciable organomegaly Ext: ROM intact. No gross muscle atrophy, no edema, no contractures Neuro: Speech clear, face symmetrical and CN II-XII grossly intact with no noted focal neuro deficits Psych: Alert and oriented to person, place, time, and situation. Appropriate and pleasant affect. Assessment and Plan of Care: Right upper and lower lobe pneumonia Acute hypoxic respiratory failure secondary to community-acquired pneumonia and presumed COPD exacerbation Likely acute COPD exacerbation, patient reports long-standing history of nicotine dependence with no previous diagnosis of COPD Hypertension Nicotine dependence -Patient completed 3 day course of azithromycin and currently on day 4 out of 5 of IV antibiotics with Rocephin 1 g every 24 hours. -Influenza A, influenza B, RSV, and Covid PCR were all negative. -Discussed plan of care with pulmonology RANCH HELPER, recommending repeat chest x-ray tomorrow morning. -Continue Solu-Medrol 40 mg twice a day and likely start on oral prednisone tomorrow morning. -Continue scheduled DuoNeb treatments 4 times daily and as needed for shortness of breath and/or wheezing. -Recommend smoking cessation. -Patient maintaining oxygen saturations 90-92% on 2 L O2 via nasal cannula. Oxygen saturation at rest on room air is 86%. Patient will likely require home oxygen upon discharge. CODE STATUS: Full code DVT prophylaxis: Lovenox Discussed with: Patient, pulmonary RANCH HELPER and RN Anticipated discharge date: Tomorrow morning Anticipated discharge place: Home with oxygen Patient was seen independently by Nurse Pracitioner. This document was prepared using [employer] dictation software. Please allow for errors in glove brusher, while rare they do occur. I reviewed the documentation as provided by the JOSTIN above, who is the original author of this note. I agree with the documented assessment and plan, with the following changes: none Objective - Vital Signs Vital signs: Vital Signs Temp 98.2 F 02/19/23 07:00 Pulse 70 02/19/23 07:00 Resp 16 02/19/23 07:00 BP 159/94 02/19/23 07:00 Pulse Ox 95 02/19/23 07:00 FiO2 Intake & Output 02/18/23 02/19/23 02/19/23 18:59 06:59 18:59 Intake Total 838 Balance 838 Intake: Oral 838 Other: Voiding Method Toilet # Voids 3 2 - Labs CBC & Chem 7: 02/18/23 08:30 02/18/23 08:30 Labs: Abnormal Lab Results - Last 24 Hours (Table) 02/18/23 Range/Units 08:30 Glucose 110 H (74-99) mg/dL
[2023-02-19] MEDS: amLODIPine 5 MG TAB PO SCH (15:08)
[2023-02-20] MEDS: LEVOTHYROXINE 75 MCG TAB PO SCH (05:31)
[2023-02-20 07:48] VITALS: BP 165/88; RESP 20; TEMP 97.6
--- NOTE | 2023-02-20 08:33 | XR ---
EXAMINATION TYPE: XR chest 2V DATE OF EXAM: 02/20/2023 COMPARISON: Chest x-ray February 16, 2023. HISTORY: Pneumonia. TECHNIQUE: Frontal and lateral views of the chest are obtained. FINDINGS: There is no suspicious new focal air space opacity, pleural effusion, or pneumothorax seen . The cardiac silhouette size is stable and upper limits of normal. The osseous structures are int act. Cholecystectomy clips are seen. IMPRESSION: No new acute infiltrate. No significant change from most recent x-ray.
[2023-02-20] MEDS: IPRATROPIUM-ALBUTEROL 3 ML NEB INHALATION SCH (08:54)
[2023-02-20] MEDS: ENOXAPARIN 40 MG/0.4 ML SYRINGE SQ SCH (08:56)
[2023-02-20 08:58] VITALS: PULSE 72
[2023-02-20] MEDS ORDERED: predniSONE 10 MG TAB PO SCH (09:00)
--- NOTE | 2023-02-20 14:45 | P.PN ---
Subjective Progress Note Date: 02/20/23 This is a 57-year-old female, [id number] smoking history, known history of hypertension and hypothyroidism, continues to smoke on the average of one half pack per day. Patient was seen recently in the walk-in clinic with 1 week history of cough, fever, cough is productive with greenish phlegm, shortness of breath with any activity, patient was noted to be hypoxic in the urgent care clinic, and she was advised to go to ER. Seen in the ER on the of this month, chest x-ray showed significant consolidation involving mostly the right lower lobe, and to some extent the right middle lobe patient was admitted, started on antibiotics for presumptive acute QT acquired pneumonia, and this consult was initiated. Patient denies any chest pain, denies any nausea vomiting abdominal pain melena or hematemesis, denies any hemoptysis. Patient tells me that she is actually feeling better today compared to how she felt when she came in. Patient has been on Rocephin and Zithromax for her pneumonia all along. The patient is seen today 02/19/2023 in follow-up on the regular medical floor. She is currently sitting up in bed. Feeling better today. She is still with some loose congested cough. Maintaining good O2 saturations in the 90s on 2 L/m per nasal cannula. No new labs today. She is continued on DuoNeb inhalations, IV Solu-Medrol, antibiotics in the form of ceftriaxone. Lovenox for DVT prophylaxis. The patient is seen today 02/20/2023 in follow-up on the regular medical floor. She is currently sitting up in a chair at the bedside. Awake and alert in no acute distress. Maintaining good O2 saturations in the 90s on room air. No worsening shortness of breath, cough or congestion. Today's chest x-ray revealed no acute infiltrate. Continued on ceftriaxone, prednisone taper, bronchodilators. Objective - Vital Signs Vital signs: Vital Signs Temp 97.6 F 02/20/23 07:00 Pulse 72 02/20/23 09:06 Resp 20 02/20/23 07:00 BP 165/88 02/20/23 07:00 Pulse Ox 94 L 02/20/23 10:20 FiO2 Intake & Output 02/19/23 02/20/23 02/20/23 18:59 06:59 18:59 Intake Total 476 Balance 476 Intake: Oral 476 Other: Voiding Method Toilet # Voids 3 3 - Exam GENERAL EXAM: Alert, pleasant 57-year-old female, on room air, up in a chair, comfortable in no apparent distress. HEAD: Normocephalic. EYES: Normal reaction of pupils, equal size. NOSE: Clear with pink turbinates. THROAT: No erythema or exudates. NECK: No masses, no JVD. CHEST: No chest wall deformity. LUNGS: Equal air entry with few scattered rhonchi in the right lung. CVS: S1 and S2 normal with no audible murmur, regular rhythm. ABDOMEN: No hepatosplenomegaly, normal bowel sounds, no guarding or rigidity. SPINE: No scoliosis or deformity SKIN: No rashes CENTRAL NERVOUS SYSTEM: No focal deficits, tone is normal in all 4 extremities. EXTREMITIES: There is no peripheral edema. No clubbing, no cyanosis. Peripheral pulses are intact. - Labs CBC & Chem 7: 02/18/23 08:30 02/18/23 08:30 Assessment and Plan Assessment: Acute hypoxic respiratory failure secondary to acute community-acquired pneumonia, and acute exacerbation of COPD Acute exacerbation of presumptive COPD Benign essential hypertension, on treatment. Tobacco dependence syndrome History of hypothyroidism on replacement therapy Plan: The patient was seen and evaluated Chest x-ray, medications reviewed Cleared for discharge from the pulmonary standpoint Complete a prednisone taper Complete a course of antibiotics Follow-up in the office in 1 week I have personally seen and examined the patient, performed the documentation and the assessment and plan as written. Number of minutes spent on the visit: 10.
--- NOTE | 2023-02-20 18:36 | P.DS ---
Providers Date of admission: 02/16/23 23:33 Expected date of discharge: 02/20/23 Attending physician: Rekha Sampson MD Consults: 02/18/23 10:53 Consult Physician Routine Consulting Provider: Dami De La Fuente Consult Reason/Comments: pneumonia, likely underlying COPD Do you want consulting provider notified?: Yes Primary care physician: Diana Price Hospital Course: Discharge Diagnosis: Right upper and lower lobe pneumonia, completed IV antibiotic course with azithromycin and Rocephin. Procalcitonin negative is 0.05. Acute hypoxic respiratory failure secondary to community-acquired pneumonia and presumed COPD exacerbation Likely acute COPD exacerbation, patient reports long-standing history of nicotine dependence with no previous diagnosis of COPD Hypertension Nicotine dependence Hospital Course: Patient is a very pleasant 57 showed female with a past medical history of hy pertension and nicotine dependence. She presented to the emergency department with a chief complaint of shortness of breath and productive cough 1 week. She underwent full evaluation in the emergency department. CBC revealing leukopenia with WBC count of 3.0. Coagulation profile unremarkable. D-dimer negative at 0.36. BMP unremarkable. Liver enzymes normal findings. Troponin less than 0.0 12, proBNP 194. Influenza A, influenza B, RSV, and Covid PCR were all negative. EKG was completed showing normal sinus rhythm at 93 bpm with no noted T-wave or ST abnormalities upon personal review and interpretation. Unable to personally review x-ray at this time as imaging was performed under wrong name and awaiting charts to be merged. However per documentation in chart chest x-ray did reveal right middle and lower lobe partial consolidation. Patient was admitted under our services at this time. Patient has been receiving steroids, breathing treatments, and antibiotics. Patient continues to require oxygen supplementation and per RN the patient desaturating down to 86% on room air this morning while at rest and maintained at 86%. Oral prednisone discontinued and patient started on Solu-Medrol 40 mg twice a day. Consult placed to engineering faculty member as there is likely underlying undiagnosed COPD with patient's long-standing history of nicotine dependence in addition to current community- acquired pneumonia. Patient completed course of IV antibiotics with azithromycin and Rocephin. Procalcitonin negative is 0.05. Patient evaluated by engineering faculty member. Patient was educated on importance of smoking cessation and risks associated with continued use. Patient was successfully weaned off of oxygen and now maintaining oxygen saturations on room air at rest and with ambulation. Oxygen saturations at rest on room air 94% and with ambulation 90%. Medically, patient is stable for discharge. Patient is being discharged home on prednisone taper and provided with Ventolin inhaler. Patient strongly encourage that she will need to follow-up both with her PCP as well as engineering faculty member. Again patient strongly encouraged to stop smoking. Physical exam: Vital signs reviewed and stable. General: Nontoxic, no distress and appears stated age. Derm: Skin warm and dry, normal coloration for ethnicity. Head: Atraumatic, normocephalic and symmetric. Eyes: EOMs intact, no lid lag, and anicteric sclera Mouth: no lip lesions, mucus membranes moist Cardiovascular: regular rate and rhythm with normal S1S2, no murmur, positive posterior tibial pulses bilaterally, and cap refill < 2 seconds. Lungs: Respirations even, regular, and unlabored on room air. Lungs diminished with soft expiratory wheezes. No accessory muscle usage. Abdominal: soft, nontender to palpation, no guarding, no appreciable organomegaly Ext: ROM intact. No gross muscle atrophy, no edema, no contractures Neuro: Speech clear, face symmetrical and CN II-XII grossly intact with no noted focal neuro deficits Psych: Alert and oriented to person, place, time, and situation. Appropriate and pleasant affect. A total of 31 minutes of time were spent preparing this complex discharge summary. Pt was discharged on 02/20/23 at 9:47 AM. Patient was seen independently by Nurse Practitioner. This document was prepared using [facility] dictation software. Please allow for errors in technical illustrations map inker while rare they do occur. Patient Condition at Discharge: Stable Plan - Discharge Summary Discharge Rx Participant: No New Discharge Prescriptions: New predniSONE See Taper PO DAILY 12 Days #30 tab Albuterol Inhaler [Ventolin Hfa Inhaler] 2 puff INHALATION Q4H PRN #1 each PRN Reason: Shortness Of Breath Or Wheezing Continue amLODIPine [Norvasc] 5 mg PO DAILY@1430 Omeprazole 40 mg PO DAILY Levothyroxine Sodium [Synthroid] 150 mcg PO DAILY Discharge Medication List Levothyroxine Sodium [Synthroid] 150 mcg PO DAILY 02/17/23 [History] Omeprazole 40 mg PO DAILY 02/17/23 [History] amLODIPine [Norvasc] 5 mg PO DAILY@1430 02/17/23 [History] Albuterol Inhaler [Ventolin Hfa Inhaler] 2 puff INHALATION Q4H PRN #1 each 02/20/23 [Rx] predniSONE See Taper PO DAILY 12 Days #30 tab 02/20/23 [Rx] Follow up Appointment(s)/Referral(s): Jhony Brink MD [STAFF PHYSICIAN] - 1 Week Diana Price NPC [Primary Care Provider] - 1-2 days Patient Instructions/Handouts: How to Stop Smoking (DC), COPD (Chronic Obstructive Pulmonary Disease) (DC), Chronic Lung Disease and Infection Prevention (DC), Pulmonary Rehabilitation (DC) Discharge Disposition: HOME SELF-CARE
== END 2023-02-20 11:04 | disposition home or self-care (01) | DRG 140 ==
LOC: EC 21:43 → 6NMEDSUR 23:32 → OBSVTOIN 23:33 → 6NMEDSUR 02-17 07:19
PROVIDERS: ADMIT Internal Medicine; ATTEND Internal Medicine
PROC: 3E0F7SF Introduction of Other Gas into Respiratory Tract, Via Natural or Artificial Opening (ICD-10-PCS; principal; 2023-02-16)
DX: J44.0 Chronic obstructive pulmonary disease with (acute) lower respiratory infection (principal); D72.819 Decreased white blood cell count, unspecified; J18.9 Pneumonia, unspecified organism; J44.1 Chronic obstructive pulmonary disease with (acute) exacerbation; J96.01 Acute respiratory failure with hypoxia; E03.9 Hypothyroidism, unspecified; F17.210 Nicotine dependence, cigarettes, uncomplicated; I10 Essential (primary) hypertension; E05.90 Thyrotoxicosis, unspecified without thyrotoxic crisis or storm; Z79.890 Hormone replacement therapy; Z90.49 Acquired absence of other specified parts of digestive tract
CPT/HCPCS: 36415; 71046; 80048; 80053; 83605; 83735; 83880; 84145; 84484; 85025; 85027; 85379; 85610; 85730; 87636; 93005; 94640; 94760; 96365; 96375; 99285

== ENCOUNTER → 2023-11-29 | Outpatient (CLI) | payer OTHER ==
--- NOTE | 2023-11-29 12:14 | CT ---
EXAMINATION TYPE: CT angio chest DATE OF EXAM: 11/29/2023 COMPARISON: 04/27/2021 HISTORY: hypertension CT DLP: 1094 mGycm CONTRAST: CTA thoracic aorta with 3-D reconstruction is performed and with IV Contrast, patient injected with 1 00 mL of Isovue 370. Contrast CTA of the thoracic aorta was performed from the lung apex through the upper abdomen. 3D re construction imaging obtained at a separate workstation. CT Chest: THORACIC AORTA: Ascending thoracic aorta measures 9 cm AP dimension. Mild atheromatous changes seen. There is no evidence for dissection or periaortic collection. LUNGS: The lungs are clear and free of infiltrate or atelectasis. No pulmonary nodule or mass is det ected. Evidence of remote granulomatous disease. No pleural effusion or CT evidence of interstitial lung disease. MEDIASTINUM: No evidence for mediastinal hematoma. The heart is not enlarged. No evidence for med iastinal mass or adenopathy. HILAR STRUCTURES: No evidence for mass. No hilar adenopathy is appreciated. OTHER: No significant abnormality. IMPRESSION- 1. No evidence for ascending thoracic aortic aneurysm. 2. Remote granulomatous disease.
== END | disposition home or self-care (01) ==
LOC: RADCTMAIN 09:21
PROVIDERS: ATTEND Internal Medicine Interventional Cardiology
DX: J98.4 Other disorders of lung (principal); I10 Essential (primary) hypertension; Z87.891 Personal history of nicotine dependence
CPT/HCPCS: 71275; Q9967